=== PATIENT | female | born 1975 | race African-American/Black ===

== ENCOUNTER 2016-06-05 18:37 | Emergency (ER) | payer MEDICAID ==
[~2016-06-05] VITALS: Ht 165.1 cm; Wt 60.0 kg
[~2016-06-05 18:37] MED LIST: ALBU0.086 NEB; ALBU1AER INH; PRED50TA PO
[2016-06-05 18:40] VITALS: BP 145/74; PULSE 110; RESP 12; TEMP 97.7; O2SAT 100
--- NOTE | 2016-06-05 20:31 | PD ---
HPI Chief Complaint: Pain: Acute or Chronic Time Seen by Provider: 20:28 Travel History International Travel<30 days: No Contact w/Intl Traveler<30days: No History of Present Illness HPI This is a 40-year-old female who presents to the emergency department for evaluation of left shoulder pain. She states she had rotator cuff surgery done today. She was given prescriptions for Percocet and Valium. She states she took these prescriptions to [facility], but states they told her she would have to take them to a different pharmacy. However, she came to the emergency department instead. Patient has prescriptions in her hands. Patient is angry during my exam stating "your staff is crazy". Patient apparently called 911 twice from the emergency waiting room. When I instructed the patient that I would help her today, but I would be unable to write her new prescriptions she needed to get these ones filled, she pulled out her cell phone and instructed me that she was going to record my conversation. When I instructed her that I did not want to be recorded, she stated that she wanted to see a physician. The patient was seen in triage, but she will be transferred to a medical pod when a bed becomes available. PFSH Past Medical History Asthma: Yes Blood Disorders: No Bipolar Disorder: Yes Cancer: No Cardiovascular Problems: Yes (HEART MURMUR) Diminished Hearing: No Endocrine: No Gastrointestinal Disorders: Yes (stomach cramps) Genitourinary: No Headaches: No Immune Disorder: No Musculoskeletal: No Neurologic: Yes Psychiatric: Yes Reproductive: No Respiratory: Yes (ASTHMA/BRONCHITIS) Immunizations Current: No PNEUMOCCOCAL Vaccine (Year): 2 ?: Not LMP: 05/27/16 : 4 Para: 3 Miscarriage: 1 : 0 Tubal Ligation: Yes (1999) Past Surgical History Section: No Gynecologic Surgery: Yes (CERCLAGE ) Other Surgery: Yes (tubal ligation) Social History Alcohol Use: No Tobacco Use: Yes (1 PK) Substance Use: No Allergies-Medications (Allergen,Severity, Reaction): Coded Allergies: No Known Allergies (Unverified , 06/05/16) Reported Meds & Prescriptions Reported Meds & Active Scripts Active Reported Zithromax (Azithromycin) 250 Mg Tab 250 Mg PO DIRECTED Take 2 tabs (500 mg) on day 1 then 1 tab daily x 4 days. Review of Systems Except as stated in HPI: all other systems reviewed are Neg Physical Exam Exam Limitations: Uncooperative Narrative Physical exam is limited as I was not able to complete it before the patient stated she did not want to see me and wanted to see a doctor. GENERAL: Well-developed well-nourished female patient, afebrile. SKIN: Warm and dry. HEAD: Normocephalic. Atraumatic. EYES: No scleral icterus. No injection or drainage. NECK: Supple, trachea midline. No JVD or lymphadenopathy. RESPIRATORY: No accessory muscle use. MUSCULOSKELETAL: No cyanosis, or edema. Patient is wearing a sling and swath to the left arm. Data Data Last Documented VS Vital Signs Date Time Temp Pulse Resp B/P Pulse Ox O2 Delivery O2 Flow Rate FiO2 06/05/16 22:36 98.3 71 16 121/63 98 06/05/16 18:40 Room Air Orders Electrocardiogram (06/05/16 ) Morphine Inj (Morphine Inj) (06/05/16 21:30) MDM Medical Decision Making Medical Screen Exam Complete: Yes Emergency Medical Condition: Yes Medical Record Reviewed: Yes Differential Diagnosis Acute pain from rotator cuff surgery versus anxiety versus other Narrative Course 40-year-old female presents to the emergency department stating she was unable to get her Percocet and Valium filled that were given to her earlier by her physician after having rotator cuff surgery. She was instructed by Jordana to take these to another pharmacy, but came to the emergency department instead. When I was talking to the patient, she became angry and threatened to record my conversation. She did request that she see a physician. My exam is limited due to this. Patient was originally seen in triage. She'll be transferred to medical pod for further evaluation and disposition when a bed becomes available. Cris Rivera Jun 05, 2016 20:31
[2016-06-05] MEDS ORDERED: ZITH250T PO (21:18)
[2016-06-05] MEDS ORDERED: MORPHINE SULFATE 4 MG/ML INJ IM ONE (21:30)
--- NOTE | 2016-06-05 21:46 | PD ---
HPI Chief Complaint: Pain: Acute or Chronic Time Seen by Provider: 21:09 Travel History International Travel<30 days: No Contact w/Intl Traveler<30days: No History of Present Illness HPI 40yo F with no significant PMH presents to the ED requesting pain medication for her left shoulder. Pt had arthroscopic left shoulder surgery today and was prescribed valium and percocet. Pt still physically have the prescriptions and states she was unable to have them filled. Denies any fever, chest pain, sob, n /v, abdominal pain, focal weakness or numbness. PFSH Past Medical History Asthma: Yes Blood Disorders: No Bipolar Disorder: Yes Cancer: No Cardiovascular Problems: Yes (HEART MURMUR) Diminished Hearing: No Endocrine: No Gastrointestinal Disorders: Yes (stomach cramps) Genitourinary: No Headaches: No Immune Disorder: No Musculoskeletal: No Neurologic: Yes Psychiatric: Yes Reproductive: No Respiratory: Yes (ASTHMA/BRONCHITIS) Immunizations Current: No PNEUMOCCOCAL Vaccine (Year): 2 ?: Not LMP: 05/27/16 : 4 Para: 3 Miscarriage: 1 : 0 Tubal Ligation: Yes (1999) Past Surgical History Section: No Gynecologic Surgery: Yes (CERCLAGE ) Other Surgery: Yes (tubal ligation) Social History Alcohol Use: No Tobacco Use: Yes (1 PK) Substance Use: No Allergies-Medications (Allergen,Severity, Reaction): Coded Allergies: No Known Allergies (Unverified , 06/05/16) Reported Meds & Prescriptions Reported Meds & Active Scripts Active Reported Zithromax (Azithromycin) 250 Mg Tab 250 Mg PO DIRECTED Take 2 tabs (500 mg) on day 1 then 1 tab daily x 4 days. Review of Systems Except as stated in HPI: all other systems reviewed are Neg Physical Exam Narrative GENERAL: 40yoF very anxious, crying. SKIN: Warm and dry. HEAD: Atraumatic. Normocephalic. NECK: Trachea midline. No JVD. CARDIOVASCULAR: Regular rate and rhythm. No murmur appreciated. RESPIRATORY: No accessory muscle use. Clear to auscultation. Breath sounds equal bilaterally. GASTROINTESTINAL: Abdomen soft, non-tender, nondistended. Hepatic and splenic margins not palpable. MUSCULOSKELETAL: LUE: Left shoulder dressing clean/dry/intact. [place] intact, with no erythema or signs of infection. Deltoid sensation intact. Radial pulse 2+. In arm sling. NEUROLOGICAL: Awake and alert. No obvious cranial nerve deficits. Motor grossly within normal limits. Normal speech. PSYCHIATRIC: Appropriate mood and affect; insight and judgment normal. Data Data Last Documented VS Vital Signs Date Time Temp Pulse Resp B/P Pulse Ox O2 Delivery O2 Flow Rate FiO2 06/05/16 18:40 97.7 110 12 145/74 100 Room Air Orders Electrocardiogram (06/05/16 ) Morphine Inj (Morphine Inj) (06/05/16 21:30) MDM Medical Decision Making Medical Screen Exam Complete: Yes Emergency Medical Condition: Yes Differential Diagnosis Post op pain vs. malingering Narrative Course 40yo F here requesting pain medication for her shoulder even though pt had a nerve block for the surgery and had prescriptions of valium and percocet with her. Pt is very dramatic and I believe her tachycardia is related to her pain and anxiety. Pt given 4mg morphine IM with improvement of pain. Pt will not be prescribed any pain medication since she has prescriptions and needs to follow up with her orthopedic surgeon as an outpatient. Pt is nontoxic appearing, has no fever. Diagnosis Primary Impression: Acute pain of left shoulder Patient Instructions: General Instructions Departure Forms: Tests/Procedures Additional Instructions: Please follow up with your orthopedic surgeon tomorrow. Med/Other Pt SpecificInfo: No Change to Meds Disposition: 01 DISCHARGE HOME Condition: Stable JosetteImani DO Jun 05, 2016 21:46
[2016-06-05 22:08] VITALS: RESP 14
[2016-06-05 22:36] VITALS: BP 121/63; TEMP 98.3
--- NOTE | 2016-06-06 08:17 | EKG ---
Date Performed: 06/05/2016 Time Performed: 20:53:16 PTAGE: 40 years EKG: SINUS TACHYCARDIA WITH SHORT WA INTERVAL NONSPECIFIC ST & T-WAVE ABNORMALITY ABNORMAL RHYTH M ECG COMPARED TO PRIOR ELECTROCARDIOGRAM, Rate has increased and T wave changes are more prominent. PREVIOUS TRACING : 11/13/2010 17.05 DOCTOR: Jair Mayers Interpretating Date/Time 06/06/2016 08:15:55
== END 2016-06-05 22:38 | disposition home or self-care (01) ==
LOC: NEPB 18:37
DX: M25.512 Pain in left shoulder (principal); F31.9 Bipolar disorder, unspecified; R01.1 Cardiac murmur, unspecified; F17.210 Nicotine dependence, cigarettes, uncomplicated; R94.31 Abnormal electrocardiogram [ECG] [EKG]
CPT/HCPCS: 93005; 96372; 99283; J2270

== ENCOUNTER 2017-01-21 00:31 | Emergency (ER) | payer MEDICAID, OTHER ==
[~2017-01-21] VITALS: Ht 165.1 cm; Wt 57.2 kg
[~2017-01-21 00:31] MED LIST changes: -ALBU0.086 NEB; -ALBU1AER INH; -PRED50TA PO; +ZITH250T PO
[2017-01-21 00:42] VITALS: BP 132/66; PULSE 79; RESP 16; TEMP 99.4; O2SAT 100
[2017-01-21 00:56] LABS: BLOOD, URINE LARGE (NEG); GLUCOSE,URINE NEG (NEG); KETONE, URINE TRACE mg/dL (NEG); NITRITE,URINE NEG (NEG)
[2017-01-21 01:00] LABS: URINE COLOR YELLOW (YELLW/STRAW)
[2017-01-21 01:01] LABS: MUCUS URINE OCC /lpf (OCC)
[2017-01-21 01:02] LABS: RBC, URINE 100-200 /hpf (0-3)
[2017-01-21 01:04] LABS: COMMENT (UR) CULT NOT INDICATED; CULTURE IF INDICATED CULT NOT INDICATED; SQUAMOUS EPITHELIAL CELL URINE > 8 /hpf (0-5)
[2017-01-21 01:17] VITALS: BP_SYST 132; BP_SYST 138; BP_DIAS 66; BP_DIAS 79; PULSE 79; RESP 18; TEMP 99.4; O2SAT 99
[2017-01-21] MEDS ORDERED: SODIUM CHLOR 0.9% 1000 ML INJ 1,000 ML IV SCH ×2 (01:20→01:30)
--- NOTE | 2017-01-21 01:26 | PD ---
HPI Chief Complaint: Complaint Time Seen by Provider: 01:19 Travel History International Travel<30 days: No Contact w/Intl Traveler<30days: No Traveled to known affect area: No History of Present Illness HPI The patient is a 41-year-old female that complains of bilateral flank pain and vomiting since yesterday evening. She never was able to take her temperature at home but has had chills. She states she cannot be , she has had a tubal ligation. Apparently, the patient had a workup for the same thing at [facility] yesterday. PFSH Past Medical History Asthma: Yes Blood Disorders: No Bipolar Disorder: Yes Cancer: No Cardiovascular Problems: Yes (HEART MURMUR) Diminished Hearing: No Endocrine: No Gastrointestinal Disorders: Yes (stomach cramps) Genitourinary: No Headaches: No Immune Disorder: No Musculoskeletal: No Neurologic: Yes Psychiatric: Yes Reproductive: No Respiratory: Yes (ASTHMA/BRONCHITIS) Immunizations Current: No PNEUMOCCOCAL Vaccine (Year): 2 : 4 Para: 3 Miscarriage: 1 : 0 Tubal Ligation: Yes (1999) Past Surgical History Section: No Gynecologic Surgery: Yes (CERCLAGE ) Other Surgery: Yes (tubal ligation) Social History Alcohol Use: No Tobacco Use: Yes (1 PK) Substance Use: No Allergies-Medications (Allergen,Severity, Reaction): Coded Allergies: No Known Allergies (Unverified , 06/05/16) Reported Meds & Prescriptions Reported Meds & Active Scripts Active Bactrim DS (Sulfamethoxazole-Trimethoprim) 800-160 Mg Tab 1 Tab PO BID Doxycycline Hyclate 100 Mg Cap 100 Mg PO BID Flagyl (Metronidazole) 500 Mg Tab 500 Mg PO TID 10 Days Reported Zithromax (Azithromycin) 250 Mg Tab 250 Mg PO DIRECTED Take 2 tabs (500 mg) on day 1 then 1 tab daily x 4 days. Review of Systems Except as stated in HPI: all other systems reviewed are Neg Physical Exam Narrative GENERAL: The patient appears moderately dehydrated, alert, oriented 3 in moderate distress with her nausea and flank pain. Her vital signs show temperature 99.4 but otherwise normal. SKIN: Focused skin assessment warm/dry. HEAD: Atraumatic. Normocephalic. EYES: Pupils equal and round. No scleral icterus. No injection or drainage. ENT: No nasal bleeding or discharge. Mucous membranes pink and moist. NECK: Trachea midline. No JVD. CARDIOVASCULAR: Regular rate and rhythm. No murmur appreciated. RESPIRATORY: No accessory muscle use. Clear to auscultation. Breath sounds equal bilaterally. GASTROINTESTINAL: Abdomen soft, with tenderness to direct palpation in the suprapubic area and both flanks and the abdomen is nondistended. Hepatic and splenic margins not palpable. No guarding or rebound is present. MUSCULOSKELETAL: No obvious deformities. No clubbing. No cyanosis. No edema. NEUROLOGICAL: Awake and alert. No obvious cranial nerve deficits. Motor grossly within normal limits. Normal speech. PSYCHIATRIC: Appropriate mood and affect; insight and judgment normal. GENITOURINARY: Normal external genitalia without lesions or erythema. Vaginal vault without blood but there is appear white, slightly foul-smelling drainage. Cervical os was closed with clear drainage. There is exquisite cervical motion tenderness. Uterus tender and nonenlarged. Bilateral adnexa tender without masses. Data Data Last Documented VS Vital Signs Date Time Temp Pulse Resp B/P (MAP) Pulse Ox O2 Delivery O2 Flow Rate FiO2 01/21/17 03:18 16 01/21/17 02:30 78 120/77 (91) 100 Room Air 01/21/17 01:17 99.4 Orders Orders Urinalysis - C+S If Indicated (01/21/17 00:48) Ed Urine Pregnancytest Poc (01/21/17 00:48) Beta Hcg (Quant/Titer) (01/21/17 01:20) Complete Blood Count With Diff (01/21/17 01:20) Comprehensive Metabolic Panel (01/21/17 01:20) Iv Access Insert/Monitor (01/21/17 01:20) Ecg Monitoring (01/21/17 01:20) Oximetry (01/21/17 01:20) Ondansetron Inj (Zofran Inj) (01/21/17 01:30) Sodium Chlor 0.9% 1000 Ml Inj (Ns 1000 M (01/21/17 01:20) Sodium Chloride 0.9% Flush (Ns Flush) (01/21/17 01:30) Lactic Acid (01/21/17 01:20) Sodium Chlor 0.9% 1000 Ml Inj (Ns 1000 M (01/21/17 01:30) Hydromorphone Pf Inj (Dilaudid Pf Inj) (01/21/17 02:30) Ondansetron Inj (Zofran Inj) (01/21/17 02:30) Ct Abd/Pel W/O Iv Contrast (01/21/17 02:30) Doxycycline (Vibratab) (01/21/17 03:15) Ceftriaxone Inj (Rocephin Inj) (01/21/17 03:15) Gc And Chlamydia Pcr (01/21/17 03:17) Wet Prep Profile (01/21/17 03:17) Sulfamet-Trimeth Ds 800-160 Mg (Bactrim (01/21/17 03:45) Labs Laboratory Tests Test 01/21/17 00:52 01/21/17 01:50 01/21/17 03:17 01/21/17 03:20 Urine Color YELLOW Urine Turbidity SLIGHT Urine pH 7.0 Urine Specific [place] 1.014 Urine Protein NEG mg/dL Urine Glucose (UA) NEG mg/dL Urine Ketones TRACE mg/dL Urine Occult Blood LARGE Urine Nitrite NEG Urine Bilirubin NEG Urine Leukocyte Esterase TRACE Urine RBC 100-200 /hpf Urine WBC 3-5 /hpf Urine Squamous Epithelial Cells > 8 /hpf Urine Mucus OCC /lpf Microscopic Urinalysis Comment CULT NOT INDICATED White Blood Count 15.4 TH/MM3 Red Blood Count 4.24 MIL/MM3 Hemoglobin 13.1 GM/DL Hematocrit 38.9 % Mean Corpuscular Volume 91.9 FL Mean Corpuscular Hemoglobin 31.0 PG Mean Corpuscular Hemoglobin Concent 33.7 % Red Cell Distribution Width 12.4 % Platelet Count 190 TH/MM3 Mean Platelet Volume 9.5 FL Neutrophils (%) (Auto) 87.6 % Lymphocytes (%) (Auto) 7.0 % Monocytes (%) (Auto) 4.7 % Eosinophils (%) (Auto) 0.0 % Basophils (%) (Auto) 0.7 % Neutrophils # (Auto) 13.5 TH/MM3 Lymphocytes # (Auto) 1.1 TH/MM3 Monocytes # (Auto) 0.7 TH/MM3 Eosinophils # (Auto) 0.0 TH/MM3 Basophils # (Auto) 0.1 TH/MM3 CBC Comment DIFF FINAL Differential Comment Blood Urea Nitrogen 7 MG/DL Creatinine 0.70 MG/DL Random Glucose 121 MG/DL Total Protein 8.4 GM/DL Albumin 4.1 GM/DL Calcium Level 9.5 MG/DL Alkaline Phosphatase 70 U/L Aspartate Amino Transf (AST/SGOT) 17 U/L Alanine Aminotransferase (ALT/SGPT) 18 U/L Total Bilirubin 0.8 MG/DL Sodium Level 133 MEQ/L Potassium Level 4.1 MEQ/L Chloride Level 100 MEQ/L Carbon Dioxide Level 22.6 MEQ/L Anion Gap 10 MEQ/L Estimat Glomerular Filtration Rate 112 ML/MIN Human Chorionic Gonadotropin, Quant LESS THAN 1 MIU/ML Lactic Acid Level 1.1 mmol/L Clue Cells (Wet Prep) PRESENT Vaginal Trichomonas (Wet Prep) NONE SEEN Vaginal Yeast (Wet Prep) NONE SEEN MDM Medical Decision Making Medical Screen Exam Complete: Yes Emergency Medical Condition: Yes Medical Record Reviewed: Yes Interpretation(s) The urine shows slight turbidity, trace ketones, large occult blood, trace leukocyte esterase with 100-200 red cells and 3-5 white cells. Differential Diagnosis Urinary stone, urinary tract infection, colitis, abdominal pain etiology undetermined, electrolyte disorder Narrative Course I asked the patient several times if she got a CT scan at [facility] of the abdomen/pelvis. She said no. Apparently, this is incorrect she got a CT scan of the abdomen/pelvis at [facility]. Apparently, it was normal. Her workup was normal at [facility]. Diagnosis Primary Impression: PID (acute pelvic inflammatory disease) Additional Impression: Hematuria of undiagnosed cause Additional Instructions: [facility]. The antibiotic is one tablet twice daily for 10 days. You do have blood in your urine tonight and this will need to be worked up. Scripts Doxycycline Hyclate (Doxycycline Hyclate) 100 Mg Cap 100 MG PO BID for Infection, #20 CAP 0 Refills Prov: David Vyas MD 01/21/17 Metronidazole (Flagyl) 500 Mg Tab 500 MG PO TID for Infection for 10 Days, TAB 0 Refills Prov: aDvid Vyas MD 01/21/17 Disposition: 01 DISCHARGE HOME Condition: Stable David Vyas MD Jan 21, 2017 01:26
[2017-01-21] MEDS ORDERED: ONDANSETRON HCL 4 MG/2 ML VIAL IVP ONE (01:30)
[2017-01-21] MEDS ORDERED: SODIUM CHLORIDE 0.9% FLUSH 10 ML FLUSH IV FLUSH PRN (01:30)
[2017-01-21 02:12] LABS: CHLORIDE 100 MEQ/L (98-107); POTASSIUM 4.1 MEQ/L (3.5-5.1); SODIUM (NA) 133 MEQ/L (136-145)
[2017-01-21 02:16] LABS: ANION GAP 10 MEQ/L (5-15); BICARBONATE 22.6 MEQ/L (21.0-32.0); BLOOD UREA NITROGEN 7 MG/DL (7-18)
[2017-01-21 02:18] LABS: AUTOMATED NEUTROPHIL # 13.5 TH/MM3 (1.8-7.7); BASOPHIL # 0.1 TH/MM3 (0-0.2); BASOPHIL % 0.7 % (0.0-2.0); HEMATOCRIT 38.9 % (35.0-46.0); LYMPHOCYTE # 1.1 TH/MM3 (1.0-4.8); MEAN CELL VOLUME 91.9 FL (80.0-100.0); MEAN CORPUSCULAR HGB CONC 33.7 % (32.0-36.0); MONO % 4.7 % (0.0-8.0); NEUT % 87.6 % (16.0-70.0); PLATELET COUNT 190 TH/MM3 (150-450); RED BLOOD COUNT 4.24 MIL/MM3 (4.00-5.30); RED CELL DISTRIBUTION WIDTH 12.4 % (11.6-17.2); WHITE BLOOD COUNT 15.4 TH/MM3 (4.0-11.0)
[2017-01-21 02:19] LABS: ALT (GPT) 18 U/L (10-53); AST (GOT) 17 U/L (15-37); GLOMERULAR FILTRATION RATE 112 ML/MIN (>89)
[2017-01-21 02:21] LABS: TOTAL BILIRUBIN ADULT 0.8 MG/DL (0.2-1.0)
[2017-01-21 02:22] LABS: ALKALINE PHOSPHATASE 70 U/L (45-117)
[2017-01-21 02:24] LABS: BETA HCG QUANT LESS THAN 1 MIU/ML (0-5)
[2017-01-21 02:30] VITALS: BP 120/77; PULSE 78; RESP 16; O2SAT 100
[2017-01-21] MEDS ORDERED: HYDROmorphone HCL PF 1 MG/ML VIAL IVP ONE (02:30)
[2017-01-21] MEDS ORDERED: ONDANSETRON HCL 4 MG/2 ML VIAL IV ONE (02:30)
[2017-01-21 02:31] LABS: HEMO FLAGS DIFF FINAL
[2017-01-21] MEDS ORDERED: DOXYCYCLINE HYCLATE 100 MG TAB PO ONE (03:15)
[2017-01-21] MEDS ORDERED: cefTRIAXone INJ 1,000 MG in SODIUM CHLORIDE 0.9% INJ 100 ML IV ONE (03:15)
[2017-01-21 03:18] VITALS: RESP 16
[2017-01-21] MEDS ORDERED: METR-1 PO (03:38)
[2017-01-21] MEDS ORDERED: DOXY100C PO (03:39)
[2017-01-21] MEDS ORDERED: BACT800T5 PO (03:43)
[2017-01-21] MEDS ORDERED: SULFAMETHOXAZOLE-TRIMETHOPRIM DS 800-160 MG TAB PO ONE (03:45)
[2017-01-21] MEDS ORDERED: metroNIDAZOLE 500 MG TAB PO ONE (04:00)
[2017-01-21 04:52] VITALS: BP 142/84
[2017-01-21 11:52] LABS: CHLAMYDIA PCR NOT DETECTED (NOT DETECT); NEISSERIA PCR NOT DETECTED (NOT DETECT)
[2017-02-10] MEDS ORDERED: METR-1 PO (15:59)
== END 2017-01-21 05:01 | disposition home or self-care (01) ==
LOC: PHED 00:31
DX: N73.0 Acute parametritis and pelvic cellulitis (principal); R31.9 Hematuria, unspecified; R11.10 Vomiting, unspecified; R68.83 Chills (without fever); F17.200 Nicotine dependence, unspecified, uncomplicated; Z87.09 Personal history of other diseases of the respiratory system; Z86.59 Personal history of other mental and behavioral disorders; Z86.79 Personal history of other diseases of the circulatory system; Z87.19 Personal history of other diseases of the digestive system; Z86.69 Personal history of other diseases of the nervous system and sense organs
CPT/HCPCS: 80053; 81001; 83605; 84702; 84703; 85025; 87210; 87491; 87591; 96361; 96365; 96375; J0696; J1170; J2405; J7030

== ENCOUNTER 2017-01-22 12:42 | Inpatient (IN) | payer OTHER ==
[~2017-01-22] VITALS: Ht 172.7 cm; Wt 55.7 kg
[~2017-01-22 12:42] MED LIST changes: +DOXY100C PO; +ESMOLOL HCL 100 MG/10 ML VIAL IV ONE; +GLYCOPYRROLATE 1 MG/5 ML SYRINGE IV PUSH ONE; +LACTATED RINGER'S 1000 ML INJ 2,000 ML IV ONE; +LIDOCAINE HCL 1% PF 5 ML AMPULE OTHER ONE; +METR-1 PO; +MIDAZOLAM HCL 2 MG/2 ML VIAL IV ONE; +NEOSTIGMINE 3 MG/3 ML SYR IV ONE; +ONDANSETRON HCL 4 MG/2 ML VIAL IV PUSH ONE; +PROPOFOL 200 MG/20 ML AMP IV ONE; +ROCURONIUM INJ 50 MG/5 ML SYRINGE IV PUSH ONE
[2017-01-22] MEDS ORDERED: IOHEXOL 350 MG/ML 10 ML VIAL (for RAD DIAG) IVCONTRAST ONE (12:43)
[2017-01-22 12:52] VITALS: BP 129/74; PULSE 106; RESP 15; TEMP 98.2; O2SAT 100; O2SAT 99
[2017-01-22] MEDS ORDERED: SODIUM CHLOR 0.9% 1000 ML INJ 1,000 ML IV SCH (13:10)
[2017-01-22] MEDS ORDERED: SODIUM CHLORIDE 0.9% FLUSH 10 ML FLUSH IV FLUSH PRN (13:15)
[2017-01-22] MEDS ORDERED: FAMOTIDINE 20 MG/2 ML VIAL IV PUSH ONE (13:15)
[2017-01-22] MEDS ORDERED: ONDANSETRON HCL 4 MG/2 ML VIAL IVP ONE (13:15)
[2017-01-22] MEDS ORDERED: MORPHINE SULFATE 4 MG/ML INJ IV PUSH ONE (13:15)
--- NOTE | 2017-01-22 13:36 | PD ---
HPI Chief Complaint: Abdominal Pain Time Seen by Provider: 13:00 Travel History International Travel<30 days: No Contact w/Intl Traveler<30days: No Traveled to known affect area: No History of Present Illness HPI 41-year-old Afro-Turkish female presents the emergency department with ongoing worsening abdominal pain, nausea, vomiting, and distention. Patient has been seen twice in the last week for similar complaints. Patient was seen at [facility] on Friday, and reportedly had a CT scan showing no obvious findings and was discharged. She was then seen again Friday morning at [place] and diagnosed with PID treated with doxycycline and Flagyl by mouth. Patient states since that time she's felt constipated and having increased distention in the abdomen as well as lower abdominal pain diffusely. Patient denies vaginal discharge or urinary symptoms. Pain is currently crampy and intermittent and described as an 8 out of 10. She is very nauseous. Pain is worse with any type of movement. Patient has no previous history of colitis or Crohn's disease. Patient was brought in by EMS. She has no known drug allergies. PFSH Past Medical History Asthma: Yes Blood Disorders: No Bipolar Disorder: Yes Cancer: No Cardiovascular Problems: Yes (HEART MURMUR) Diminished Hearing: No Endocrine: No Gastrointestinal Disorders: Yes (stomach cramps) Genitourinary: No Headaches: No Immune Disorder: No Musculoskeletal: No Neurologic: Yes Psychiatric: Yes Reproductive: No Respiratory: Yes (ASTHMA/BRONCHITIS) Immunizations Current: No PNEUMOCCOCAL Vaccine (Year): 2 ?: Not : 4 Para: 3 Miscarriage: 1 : 0 Tubal Ligation: Yes Past Surgical History Section: No Gynecologic Surgery: Yes (CERCLAGE ) Other Surgery: Yes (tubal ligation) Social History Alcohol Use: No Tobacco Use: Yes (5 cigarettes/daily) Substance Use: No Allergies-Medications (Allergen,Severity, Reaction): Coded Allergies: No Known Allergies (Unverified , 06/05/16) Reported Meds & Prescriptions Reported Meds & Active Scripts Active Doxycycline Hyclate 100 Mg Cap 100 Mg PO BID Flagyl (Metronidazole) 500 Mg Tab 500 Mg PO TID 10 Days Reported Zithromax (Azithromycin) 250 Mg Tab 250 Mg PO DIRECTED Take 2 tabs (500 mg) on day 1 then 1 tab daily x 4 days. Review of Systems Except as stated in HPI: all other systems reviewed are Neg General / Constitutional: Positive: Chills, Weight Loss, No: Fever Eyes: No: Visual changes HENT: Positive: Lightheadedness, No: Headaches, Vertigo, Sore Throat, Rhinitis , Rhinorrhea, Congestion, Nosebleed, Neck Stiffness, Neck Pain, Gingival Bleeding, Dental Difficulties, Ear Discharge, Earache Cardiovascular: No: Chest Pain or Discomfort Respiratory: No: Cough, Shortness of Breath Gastrointestinal: Positive: Nausea, Vomiting, Abdominal Pain, Constipation, Changes in Bowel Habits, Loss of Appetite, No: Diarrhea, Indigestion, Dysphagia Genitourinary: No: Urgency, Frequency, Dysuria Musculoskeletal: No: Pain Skin: No Rash Neurologic: No: Weakness Psychiatric: No: Depression Endocrine: No: Polydipsia Hematologic/Lymphatic: No: Easy Bruising Physical Exam Narrative GENERAL: Patient appears in moderate distress. SKIN: Warm and dry. Normal color. Normal turgor. No diaphoresis. HEAD: Atraumatic. Normocephalic. EYES: Pupils equal and round. No scleral icterus. No injection or drainage. ENT: No nasal bleeding or discharge. Mucous membranes pink and moist. Pharynx is clear. Airway is patent. NECK: Trachea midline. Supple nontender. CARDIOVASCULAR: Regular rate and rhythm. RESPIRATORY: No accessory muscle use. Clear to auscultation. Breath sounds equal bilaterally. GASTROINTESTINAL: Abdomen soft, moderate diffuse tenderness throughout, mildly distended. Hepatic and splenic margins not palpable. Bowel sounds are present but quiet in all quadrants. MUSCULOSKELETAL: Extremities without clubbing, cyanosis, or edema. No obvious deformities. NEUROLOGICAL: Awake and alert. No obvious cranial nerve deficits. Motor grossly within normal limits. Five out of 5 muscle strength in the arms and legs. Normal speech. PSYCHIATRIC: Appropriate mood and affect; insight and judgment normal. Data Data Last Documented VS Vital Signs Date Time Temp Pulse Resp B/P (MAP) Pulse Ox O2 Delivery O2 Flow Rate FiO2 01/22/17 12:54 17 01/22/17 12:52 98.2 106 129/74 (92) 100 01/22/17 12:52 Room Air Orders Orders Complete Blood Count With Diff (01/22/17 13:10) Comprehensive Metabolic Panel (01/22/17 13:10) Lipase (01/22/17 13:10) Lactic Acid (01/22/17 13:10) Prothrombin Time / Inr (Pt) (01/22/17 13:10) Act Partial Throm Time (Ptt) (01/22/17 13:10) Urinalysis - C+S If Indicated (01/22/17 13:10) Ct Abd/Pel W Iv Contrast(Rout) (01/22/17 13:10) Iv Access Insert/Monitor (01/22/17 13:10) Ecg Monitoring (01/22/17 13:10) Oximetry (01/22/17 13:10) NPO (01/22/17 13:10) Morphine Inj (Morphine Inj) (01/22/17 13:15) Ondansetron Inj (Zofran Inj) (01/22/17 13:15) Sodium Chlor 0.9% 1000 Ml Inj (Ns 1000 M (01/22/17 13:10) Sodium Chloride 0.9% Flush (Ns Flush) (01/22/17 13:15) Electrocardiogram (01/22/17 13:10) Famotidine Inj (Pepcid Inj) (01/22/17 13:15) Iohexol 350 Inj (Omnipaque 350 Inj) (01/22/17 12:43) Vancomycin Inj (Vancomycin Inj) (01/22/17 17:00) Hydromorphone Pf Inj (Dilaudid Pf Inj) (01/22/17 17:30) Comprehensive Metabolic Panel (01/23/17 06:00) Free Thyroxine (T4) (01/23/17 06:00) Hemoglobin (Hgb) A1c (01/23/17 06:00) Magnesium (Mg) (01/23/17 06:00) Phosphorus (Po4) (01/23/17 06:00) Thyroid Stimulating Hormone (01/23/17 06:00) Complete Blood Count With Diff (01/23/17 06:00) Admit To Inpatient (01/22/17 ) Code Status (01/22/17 17:34) Vital Signs (Adult) Q4H (01/22/17 17:34) Activity Oob Ad Aleah (01/22/17 17:34) Relocation Commissioner / Telemetry .CONTINUOUS (01/22/17 17:34) Intake + Output VICKY.QSHIFT (01/22/17 17:34) Diet Npo (01/22/17 Dinner) D5-1/2 Ns + Kcl 20 Meq Inj (D5-1/2 Ns + (01/22/17 17:34) Sodium Chloride 0.9% Flush (Ns Flush) (01/22/17 17:45) Sodium Chloride 0.9% Flush (Ns Flush) (01/22/17 21:00) Acetaminophen (Tylenol) (01/22/17 17:45) Ondansetron Inj (Zofran Inj) (01/22/17 17:45) Prochlorperazine Supp (Compazine Supp) (01/22/17 17:45) Blood Culture (01/22/17 17:34) Resp Oxygen Eduardo C Titrat 1-4 L (01/22/17 ) Case Management Consult (01/22/17 17:34) Zolpidem (Ambien) (01/22/17 17:45) Scd Bilateral/Knee High VICKY.BID (01/22/17 17:34) Man Bilateral/Knee High VICKY.QSHIFT (01/22/17 17:45) Acetaminophen (Tylenol) (01/22/17 17:45) Oxycodone-Acetamin 5-325 Mg (Percocet (01/22/17 17:45) Oxycodone-Acetamin 10-325 Mg (Percocet 1 (01/22/17 17:45) Hydromorphone Pf Inj (Dilaudid Pf Inj) (01/22/17 17:45) Hydromorphone Pf Inj (Dilaudid Pf Inj) (01/22/17 17:45) Hydromorphone Pf Inj (Dilaudid Pf Inj) (01/22/17 17:45) Naloxone Inj (Narcan Inj) (01/22/17 17:45) Docusate Sodium-Senna (Reina-Colace) (01/22/17 21:00) Magnesium Hydroxide Liq (Milk Of Magnesi (01/22/17 17:45) Sennosides (Senokot) (01/22/17 17:45) Bisacodyl Supp (Dulcolax Supp) (01/22/17 17:45) Lactulose Liq (Lactulose Liq) (01/22/17 17:45) Vancomycin Consult Pharmacy (Vancomycin (01/22/17 17:45) Piperacil-Tazo 4.5 Gm Premix (Zosyn 4.5 (01/22/17 20:00) Inpatient Certification (01/22/17 ) Metronidazole 500 Mg Inj (Flagyl 500 Mg (01/22/17 18:00) Admit Order (Ed Use Only) (01/22/17 17:38) Consult Gynecology (01/22/17 ) Us Pelvis Comp W Dop Transvag (01/22/17 17:00) Labs Laboratory Tests Test 01/22/17 13:30 01/22/17 14:30 White Blood Count 20.4 TH/MM3 Red Blood Count 4.25 MIL/MM3 Hemoglobin 13.2 GM/DL Hematocrit 38.8 % Mean Corpuscular Volume 91.3 FL Mean Corpuscular Hemoglobin 31.1 PG Mean Corpuscular Hemoglobin Concent 34.1 % Red Cell Distribution Width 13.0 % Platelet Count 217 TH/MM3 Mean Platelet Volume 9.1 FL Neutrophils (%) (Auto) 85.6 % Lymphocytes (%) (Auto) 6.5 % Monocytes (%) (Auto) 7.8 % Eosinophils (%) (Auto) 0.0 % Basophils (%) (Auto) 0.1 % Neutrophils # (Auto) 17.5 TH/MM3 Lymphocytes # (Auto) 1.3 TH/MM3 Monocytes # (Auto) 1.6 TH/MM3 Eosinophils # (Auto) 0.0 TH/MM3 Basophils # (Auto) 0.0 TH/MM3 CBC Comment DIFF FINAL Differential Comment Prothrombin Time 12.3 SEC Prothromb Time International Ratio 1.1 RATIO Activated Partial Thromboplast Time 27.4 SEC Blood Urea Nitrogen 8 MG/DL Creatinine 0.74 MG/DL Random Glucose 116 MG/DL Total Protein 7.8 GM/DL Albumin 3.5 GM/DL Calcium Level 9.2 MG/DL Alkaline Phosphatase 73 U/L Aspartate Amino Transf (AST/SGOT) 12 U/L Alanine Aminotransferase (ALT/SGPT) 9 U/L Total Bilirubin 1.2 MG/DL Sodium Level 134 MEQ/L Potassium Level 3.6 MEQ/L Chloride Level 102 MEQ/L Carbon Dioxide Level 23.3 MEQ/L Anion Gap 9 MEQ/L Estimat Glomerular Filtration Rate 105 ML/MIN Lactic Acid Level 1.3 mmol/L Lipase 79 U/L Urine Color LIGHT-YELLOW Urine Turbidity CLEAR Urine pH 6.5 Urine Specific [place] 1.004 Urine Protein NEG mg/dL Urine Glucose (UA) NEG mg/dL Urine Ketones NEG mg/dL Urine Occult Blood MOD Urine Nitrite NEG Urine Bilirubin NEG Urine Urobilinogen LESS THAN 2.0 MG/DL Urine Leukocyte Esterase NEG Urine RBC 13 /hpf Urine WBC 1 /hpf Urine Squamous Epithelial Cells 2 /hpf Urine Bacteria RARE /hpf Microscopic Urinalysis Comment CULT NOT INDICATED MDM Medical Decision Making Medical Screen Exam Complete: Yes Emergency Medical Condition: Yes Medical Record Reviewed: Yes Differential Diagnosis Abdominal pain. Nausea vomiting. History of PID. Appendicitis. Colitis. Diverticulitis. Constipation. Gallbladder disease. Pancreatitis. Narrative Course Patient is medically stable although uncomfortable. Labs ordered including CBC, CMP, lactic acid, lipase, and urinalysis. EKG is performed showing sinus tachycardia without ST changes. Chest x-ray and abdominal CT with IV and oral contrast was ordered. IV access is obtained patient is given 4 mg Zofran IV as well as 4 mg morphine 20 mg Pepcid IV. Patient is given 10 mg dicyclomine IM. Patient is given 1000 mg normal saline bolus. CBC shows elevated leukocytosis of 20.4 with bandemia Chemistry shows sodium 134, potassium 3.6, lactic acid 1.3, random glucose is 116. Bilirubin is 1.2. AST is 12, ALT is 9 Urinalysis is unremarkable. Coagulation studies showed PT of 12.[address] shows questionable changes suggestive of inflammatory process the right lower quadrant but does not specifically identify appendicitis, but may show a right ovarian abscess. Ultrasound was ordered. This does not specifically show a ovarian abscess. The radiologist is unsure if this could be appendicitis or some other process. Call was placed to hospitalist Dr. Malcolm who did agree to admit the patient. However with the radiologist questioning appendicitis, a call was placed to Dr. Avilez, the on-call surgeon who agreed to come in and see the patient. Patient is kept nothing by mouth Diagnosis Primary Impression: Abdominal pain Qualified Codes: R10.31 - Right lower quadrant pain Additional Impression: Leukocytosis Qualified Codes: D72.829 - Elevated white blood cell count, unspecified Admitting Information Admitting Physician Requests: Admit Condition: Stable Bola Bird Jan 22, 2017 13:36
[2017-01-22 14:05] LABS: AUTOMATED NEUTROPHIL # 17.5 TH/MM3 (1.8-7.7); BASOPHIL % 0.1 % (0.0-2.0); HEMATOCRIT 38.8 % (35.0-46.0); HEMO FLAGS DIFF FINAL; LYMPH % 6.5 % (9.0-44.0); LYMPHOCYTE # 1.3 TH/MM3 (1.0-4.8); MEAN CELL VOLUME 91.3 FL (80.0-100.0); MEAN CORPUSCULAR HEMOGLOBIN 31.1 PG (27.0-34.0); MEAN CORPUSCULAR HGB CONC 34.1 % (32.0-36.0); MONO % 7.8 % (0.0-8.0); NEUT % 85.6 % (16.0-70.0); PLATELET COUNT 217 TH/MM3 (150-450); RED BLOOD COUNT 4.25 MIL/MM3 (4.00-5.30); WHITE BLOOD COUNT 20.4 TH/MM3 (4.0-11.0)
[2017-01-22 14:16] LABS: APTT (PATIENT) 27.4 SEC (24.3-30.1); INTERNATIONAL NORMALIZED RATIO 1.1 RATIO; PROTHROMBIN TIME - PATIENT 12.3 SEC (9.8-11.6)
[2017-01-22 14:19] LABS: ANION GAP 9 MEQ/L (5-15); AST (GOT) 12 U/L (15-37); BICARBONATE 23.3 MEQ/L (21.0-32.0); BLOOD UREA NITROGEN 8 MG/DL (7-18); CHLORIDE 102 MEQ/L (98-107); GLOMERULAR FILTRATION RATE 105 ML/MIN (>89); SODIUM (NA) 134 MEQ/L (136-145)
[2017-01-22 14:20] LABS: POTASSIUM 3.6 MEQ/L (3.5-5.1)
[2017-01-22 14:27] LABS: ALKALINE PHOSPHATASE 73 U/L (45-117); ALT (GPT) 9 U/L (10-53); TOTAL BILIRUBIN ADULT 1.2 MG/DL (0.2-1.0)
[2017-01-22 14:59] LABS: BACTERIA, URINE RARE /hpf; BLOOD, URINE MOD (NEG); COMMENT (UR) CULT NOT INDICATED; CULTURE IF INDICATED CULT NOT INDICATED; GLUCOSE,URINE NEG (NEG); KETONE, URINE NEG (NEG); NITRITE,URINE NEG (NEG); PH, URINE 6.5 (5.0-8.5); SQUAMOUS EPITHELIAL CELL URINE 2 /hpf (0-5); URINE COLOR LIGHT-YELLOW (YELLW/STRAW)
--- NOTE | 2017-01-22 15:52 | RADRPT ---
EXAM DATE/TIME: 01/22/2017 15:10 [facility] COMPARISON: No previous studies available for comparison. INDICATIONS : Abdominal pain and distension. IV CONTRAST: 95 cc Omnipaque 350 (iohexol) IV ORAL CONTRAST: No oral contrast ingested. RADIATION DOSE: 5.02 CTDIvol (mGy) MEDICAL HISTORY : Cardiovascular disease. SURGICAL HISTORY : Tubal ligation. ENCOUNTER: Initial ACUITY: 3 days PAIN SCALE: 7/10 LOCATION: Bilateral lower quadrant TECHNIQUE: Volumetric scanning of the abdomen and pelvis was performed. Using automated exposure control and adjustment of the mA and/or kV according to patient size, radiation dose was kept as low as reasonably achievable to obtain optimal diagnostic quality images. DICOM format image data is av ailable electronically for review and comparison. FINDINGS: Lung bases are clear. There is no pericardial effusion. The liver, spleen, pancreas and adrenal glands are unremarkable. The right kidney is unremarkable. The left kidney is unremarkable. There is no retroperitoneal adenopathy. The region of the cecum and terminal ileum are unremarkable. Cystic mass measuring 2 cm is seen in the right adnexal region. The left adnexal region is unremarka ble. Trace free fluid is evident. I do not see other inflammatory changes. There is no significant distension. CONCLUSION: Cystic mass right adnexal region. Trace fluid in the right pelvis. I d o not see inflammatory changes. Scattered radiopacities throughout the colon. Saman Dudley MD FACR on January 22, 2017 at 15:34 Board Certified Radiologist. This report was verified electronically.
--- NOTE | 2017-01-22 16:09 | PD ---
Physical Exam Date Seen by Provider: Jan 22, 2017 Narrative Patient presents with diffuse abdominal pain. Data Data Last Documented VS Vital Signs Date Time Temp Pulse Resp B/P (MAP) Pulse Ox O2 Delivery O2 Flow Rate FiO2 01/22/17 12:54 17 01/22/17 12:52 98.2 106 129/74 (92) 100 01/22/17 12:52 Room Air Orders Orders Complete Blood Count With Diff (01/22/17 13:10) Comprehensive Metabolic Panel (01/22/17 13:10) Lipase (01/22/17 13:10) Lactic Acid (01/22/17 13:10) Prothrombin Time / Inr (Pt) (01/22/17 13:10) Act Partial Throm Time (Ptt) (01/22/17 13:10) Urinalysis - C+S If Indicated (01/22/17 13:10) Ct Abd/Pel W Iv Contrast(Rout) (01/22/17 13:10) Iv Access Insert/Monitor (01/22/17 13:10) Ecg Monitoring (01/22/17 13:10) Oximetry (01/22/17 13:10) NPO (01/22/17 13:10) Morphine Inj (Morphine Inj) (01/22/17 13:15) Ondansetron Inj (Zofran Inj) (01/22/17 13:15) Sodium Chlor 0.9% 1000 Ml Inj (Ns 1000 M (01/22/17 13:10) Sodium Chloride 0.9% Flush (Ns Flush) (01/22/17 13:15) Electrocardiogram (01/22/17 13:10) Famotidine Inj (Pepcid Inj) (01/22/17 13:15) Iohexol 350 Inj (Omnipaque 350 Inj) (01/22/17 12:43) Labs Laboratory Tests Test 01/22/17 13:30 01/22/17 14:30 White Blood Count 20.4 TH/MM3 Red Blood Count 4.25 MIL/MM3 Hemoglobin 13.2 GM/DL Hematocrit 38.8 % Mean Corpuscular Volume 91.3 FL Mean Corpuscular Hemoglobin 31.1 PG Mean Corpuscular Hemoglobin Concent 34.1 % Red Cell Distribution Width 13.0 % Platelet Count 217 TH/MM3 Mean Platelet Volume 9.1 FL Neutrophils (%) (Auto) 85.6 % Lymphocytes (%) (Auto) 6.5 % Monocytes (%) (Auto) 7.8 % Eosinophils (%) (Auto) 0.0 % Basophils (%) (Auto) 0.1 % Neutrophils # (Auto) 17.5 TH/MM3 Lymphocytes # (Auto) 1.3 TH/MM3 Monocytes # (Auto) 1.6 TH/MM3 Eosinophils # (Auto) 0.0 TH/MM3 Basophils # (Auto) 0.0 TH/MM3 CBC Comment DIFF FINAL Differential Comment Prothrombin Time 12.3 SEC Prothromb Time International Ratio 1.1 RATIO Activated Partial Thromboplast Time 27.4 SEC Blood Urea Nitrogen 8 MG/DL Creatinine 0.74 MG/DL Random Glucose 116 MG/DL Total Protein 7.8 GM/DL Albumin 3.5 GM/DL Calcium Level 9.2 MG/DL Alkaline Phosphatase 73 U/L Aspartate Amino Transf (AST/SGOT) 12 U/L Alanine Aminotransferase (ALT/SGPT) 9 U/L Total Bilirubin 1.2 MG/DL Sodium Level 134 MEQ/L Potassium Level 3.6 MEQ/L Chloride Level 102 MEQ/L Carbon Dioxide Level 23.3 MEQ/L Anion Gap 9 MEQ/L Estimat Glomerular Filtration Rate 105 ML/MIN Lactic Acid Level 1.3 mmol/L Lipase 79 U/L Urine Color LIGHT-YELLOW Urine Turbidity CLEAR Urine pH 6.5 Urine Specific [place] 1.004 Urine Protein NEG mg/dL Urine Glucose (UA) NEG mg/dL Urine Ketones NEG mg/dL Urine Occult Blood MOD Urine Nitrite NEG Urine Bilirubin NEG Urine Urobilinogen LESS THAN 2.0 MG/DL Urine Leukocyte Esterase NEG Urine RBC 13 /hpf Urine WBC 1 /hpf Urine Squamous Epithelial Cells 2 /hpf Urine Bacteria RARE /hpf Microscopic Urinalysis Comment CULT NOT INDICATED [facility] Supervised Visit with TONEY: Yes Differential Diagnosis Differential diagnosis of abdominal pain includes but is not limited to gastritis, pancreatitis, hepatitis, gastroenteritis, gallbladder disease, constipation, urinary retention, UTI, peptic ulcer disease, diverticulitis or appendicitis Narrative Course I, Dr. Olvera, have reviewed the advance practice practitioner's documentation and am in agreement, met with the patient face to face, made the diagnosis, and the medical decision making was done by me. *My assessment and Findings: Abdomen is soft. CBC & BMP Diagram 01/22/17 13:30 Total Protein 7.8 #, Albumin 3.5 #, Calcium Level 9.2, Alkaline Phosphatase 73, Aspartate Amino Transf (AST/SGOT) 12 L, Alanine Aminotransferase (ALT/SGPT) 9 L , Total Bilirubin 1.2 H UA neg for infection. Ct abd/pelvis>>Cystic mass right adnexal region. Trace fluid in the right pelvis. I do not see inflammatory changes. Scattered radiopacities throughout the colon. WBC has increased since 2 nights ago. Condition: Stable Coty Olvera MD Jan 22, 2017 16:09
[2017-01-22] MEDS ORDERED: VANCOMYCIN INJ 1,000 MG in SODIUM CHLOR 0.9% 250 ML INJ 250 ML IV ONE (17:00)
[2017-01-22] MEDS ORDERED: PIPERACIL-TAZO 4.5 GM PREMIX 100 ML IV ONE (17:00)
[2017-01-22] MEDS ORDERED: HYDROmorphone HCL PF 1 MG/ML VIAL IV PUSH ONE (17:30)
[2017-01-22] MEDS: D5-1/2 NS + KCL 20 MEQ INJ 1,000 ML IV SCH (17:34)
[2017-01-22] MEDS ORDERED: NALOXONE HCL 0.4 MG/ML AMP IV PUSH PRN (17:45)
[2017-01-22] MEDS ORDERED: oxyCODONE/ACETAMINOPHEN 5 MG/325 MG TAB PO PRN (17:45)
[2017-01-22] MEDS ORDERED: PROCHLORPERAZINE 25 MG SUPP RECTAL PRN (17:45)
[2017-01-22] MEDS ORDERED: BISACODYL 10 MG SUPP RECTAL PRN (17:45)
[2017-01-22] MEDS ORDERED: MAGNESIUM HYDROXIDE SUSP 30 ML CUP PO PRN (17:45)
[2017-01-22] MEDS ORDERED: SENNOSIDES 8.6 MG TAB PO PRN (17:45)
[2017-01-22] MEDS ORDERED: Vancomycin Consult Pharmacy 1 EA OTHER SCH (17:45)
[2017-01-22] MEDS ORDERED: oxyCODONE/ACETAMINOPHEN 10 MG/325 MG TAB PO PRN (17:45)
[2017-01-22] MEDS ORDERED: HYDROmorphone HCL PF 1 MG/ML VIAL IV PUSH PRN ×4 (17:45→20:15)
[2017-01-22] MEDS ORDERED: ZOLPIDEM TARTRATE 5 MG TAB PO PRN (17:45)
[2017-01-22] MEDS ORDERED: ACETAMINOPHEN 325 MG TAB PO PRN ×2 (17:45)
[2017-01-22] MEDS ORDERED: LACTULOSE SYRUP 20 GM/30 ML CUP PO PRN (17:45)
[2017-01-22] MEDS: metroNIDAZOLE 500 MG INJ 100 ML IV SCH (18:00)
[2017-01-22 18:13] VITALS: O2SAT 99
--- NOTE | 2017-01-22 19:08 | RADRPT ---
EXAM DATE/TIME: 01/22/2017 17:26 [facility] COMPARISON: CT ABDOMEN & PELVIS W CONTRAST, January 22, 2017, 15:10. INDICATIONS : Abscess. MEDICAL HISTORY : Heart murmur. Asthma. Psychiatric problems. Bipolar. Pelvic inflammatory disease. SURGICAL HISTORY : Tubal ligation. [place]. ENCOUNTER: Initial ACUITY: 1 week PAIN SCORE: 9/10 LOCATION: Bilateral pelvis MEASUREMENTS: UTERUS: 7.3 x 5.7 x 4.7 cm ENDOMETRIAL STRIPE: 4 mm RIGHT OVARY: 2.9 x 2.2 x 1.6 cm LEFT OVARY: 3.4 x 3.1 x 1.9 cm FINDINGS: Uterus within normal limits. 5.4 cm structure seen in the right lower quadrant which I believe is pro bably the base of the cecum. Otherwise, small cysts are seen of both ovaries. There is no evidence of torsion. There is small free fluid in the pelvic cavity. CONCLUSION: 1. No acute TREADLE CUT OFF SAW OPERATOR abnormality is convincingly demonstrated. A few small bilateral ovarian cysts are not ed but no evidence of torsion or definite PID. 2. I have reviewed the CT and I don't convincingly see a normal appendix. There is a looped structure medial to the cecum with wall thickening; I'm not convinced its the ileum and acute appendicitis is definitely possible in the proper clinical setting, especially since I don't see a definite acute TREADLE CUT OFF SAW OPERATOR abnormality. Findings were discussed with Bola Bird P.A.-C. Steve Kerr MD on January 22, 2017 at 18:54 Board Certified Radiologist. This report was verified electronically.
[2017-01-22 19:26] VITALS: BP 111/57
[2017-01-22] MEDS ORDERED: VANCOMYCIN 1,000 MG/NS 250 ML IV ONE ×2 (19:45)
[2017-01-22 20:00] VITALS: BP 106/58; PULSE 91; RESP 18; TEMP 97.7; O2SAT 99
[2017-01-22] MEDS: PIPERACIL-TAZO 4.5 GM PREMIX 100 ML IV SCH (20:00)
[2017-01-22] MEDS: SODIUM CHLORIDE 0.9% FLUSH 10 ML FLUSH IV FLUSH SCH (21:00)
[2017-01-22] MEDS: DOCUSATE SODIUM 50 MG/SENNA 8.6 MG TAB PO SCH (21:00)
[2017-01-22] MEDS ORDERED: BUPIVACAINE/EPINEPHRINE 0.25% 50 ML VIAL ONE (22:37)
[2017-01-22] MEDS ORDERED: ACETAMINOPHEN 1000 MG/100 ML 100 ML IV ONE (23:46)
[2017-01-23] VITALS (7 sets, daily range): BP systolic 96–149; BP diastolic 53–72; PULSE 67–107; RESP 17–20; TEMP 96.6–99.4; O2SAT 98–100
--- NOTE | 2017-01-23 00:17 | HHI.PR ---
Immediate Post Op Note Procedure Date: Jan 23, 2017 Pre Op Diagnosis: acute appendicitis Post Op Diagnosis: same, necrotic inflamed appendix Surgeon: Timothy Avilez MD Patent Prosecution Attorney(s): see or sheet Procedure: lap appy Findings: necrotic purulent appendicitis Complications: none Specimen(s) removed: appendix Estimated blood loss: 5cc Anesthesia: General Drains: CHUY IVF (1300) Patient to: PACU Patient Condition: Good Timothy Avilez MD Jan 23, 2017 00:17
[2017-01-23] MEDS ORDERED: DO NOT ADM ANY ANTICOAGULANT DRUGS PRN (01:00)
[2017-01-23] MEDS: D5-1/2 NS + KCL 20 MEQ INJ 1,000 ML IV SCH ×2 (01:04→13:23)
[2017-01-23] MEDS: metroNIDAZOLE 500 MG INJ 100 ML IV SCH (01:11)
[2017-01-23] MEDS: PIPERACIL-TAZO 4.5 GM PREMIX 100 ML IV SCH ×4 (03:46→20:30)
--- NOTE | 2017-01-23 05:17 | HHI.HP ---
HPI Service [facility] Hospitalists Primary Care Physician No Primary Care Physician Admission Diagnosis Ovarian Abscess/Leukocytosis Diagnoses: Chief Complaint: abdominal pain Travel History International Travel<30 Days: No Contact w/Intl Traveler <30 Da: No Traveled to Known Affected Are: No History of Present Illness 41 y/o female with a history of bipolar presented to the ED with complaints of abdominal pain. Patient states for the last 3 days she has had diffuse abdominal pain and distention, she has been unable to have a BM or pass gas. She was seen at [facility] on Friday and diagnosed with PID and treated with doxycycline and flagyl, but states the pain did not resolve. She does have associated nausea. Denies any chest pain, sob, fever or chills. She currently rates her pain at a 6/10 intermitted cramping feeling. She does state the medication given has helped. Review of Systems Except as stated in HPI: all other systems reviewed are Neg Past Family Social History Past Medical History Bipolar Past Surgical History Right knee surgery Right rotator cuff surgery Tubal ligation Reported Medications Reported Meds & Active Scripts Active Doxycycline Hyclate 100 Mg Cap 100 Mg PO BID Flagyl (Metronidazole) 500 Mg Tab 500 Mg PO TID 10 Days Reported Zithromax (Azithromycin) 250 Mg Tab 250 Mg PO DIRECTED Take 2 tabs (500 mg) on day 1 then 1 tab daily x 4 days. Allergies: Coded Allergies: prednisone (Verified Allergy, Severe, THROAT SWELLING., 01/23/17) Active Ordered Medications Current Medications Medications (Trade) Dose Ordered Sig/Katarina Route Start Time Stop Time Status Last Admin Potassium Chloride/Dextrose/ Sod Cl 1,000 ml @ 100 mls/hr Q10H IV 01/22/17 17:34 01/23/17 01:04 (NS Flush) 2 ml UNSCH PRN IV FLUSH 01/22/17 17:45 (NS Flush) 2 ml BID IV FLUSH 01/22/17 21:00 (Zofran Inj) 4 mg Q6H PRN IVP 01/22/17 17:45 (Tylenol) 650 mg Q6H PRN PO 01/22/17 17:45 (Narcan Inj) 0.4 mg UNSCH PRN IV PUSH 01/22/17 17:45 (Reina-Colace) 1 tab BID PO 01/22/17 21:00 Pharmacy Profile Note 0 ml @ 0 mls/hr UNSCH OTHER 01/22/17 17:45 Piperacillin Sod/ Tazobactam Sod 100 ml @ 200 mls/hr Q6H IV 01/22/17 20:00 01/23/17 03:46 Metronidazole 100 ml @ 100 mls/hr Q8H IV 01/22/17 18:00 01/23/17 01:11 Vancomycin HCl 750 mg/Sodium Chloride 257.5 ml @ 257.5 mls/ hr Q12H IV 01/23/17 08:00 (Dilaudid Pf Inj) 0.5 mg Q4H PRN IV PUSH 01/22/17 20:15 01/23/17 03:47 Miscellaneous Information ALL NURSING DEPARTME... UNSCH PRN .XX 01/23/17 01:00 01/24/17 00:59 Family History Mom and Dad: HTN and DM Social History Tobacco use: 5 black and milds a day Alcohol use: Denies Illicit drug use: Denies Physical Exam Vital Signs Vital Signs Date Time Temp Pulse Resp B/P (MAP) Pulse Ox O2 Delivery O2 Flow Rate FiO2 01/23/17 02:00 96.6 67 18 109/64 (79) 98 01/23/17 01:20 97.8 65 13 106/61 (76) 99 01/23/17 01:15 66 15 95/56 (69) 97 01/23/17 01:00 71 13 110/62 (78) 98 01/23/17 00:45 83 14 112/69 (83) 99 01/23/17 00:36 97.6 95 18 111/66 (81) 98 Nasal Cannula 01/22/17 20:00 97.7 91 18 106/58 (74) 99 01/22/17 19:26 105 18 111/57 (75) 98 Nasal Cannula 2.00 01/22/17 18:13 99 21 01/22/17 12:54 17 01/22/17 12:52 98.2 106 15 129/74 (92) 100 01/22/17 12:52 99 Room Air Physical Exam GENERAL: This is a well-nourished, well-developed patient, in no apparent distress. SKIN: No rashes, ecchymoses or lesions. Cool and dry. HEAD: Atraumatic. Normocephalic. EYES: Pupils equal round and reactive. ENT: Nose without bleeding, purulent drainage or septal hematoma. Airway patent. NECK: Trachea midline. No JVD or lymphadenopathy. Supple, nontender, no meningeal signs. CARDIOVASCULAR: Regular rate and rhythm with a 2/6 systolic murmur. RESPIRATORY: Clear to auscultation. Breath sounds equal bilaterally. No wheezes , rales, or rhonchi. GASTROINTESTINAL: Abdomen soft, lower abdomen tenderness, mildly distended. Hypo BS MUSCULOSKELETAL: Extremities without clubbing, cyanosis, or edema. No joint tenderness, effusion, or edema noted. No calf tenderness. NEUROLOGICAL: Awake and alert. Motor and sensory grossly within normal limits. Normal speech. Laboratory Laboratory Tests Test 01/22/17 13:30 01/22/17 14:30 White Blood Count 20.4 Red Blood Count 4.25 Hemoglobin 13.2 Hematocrit 38.8 Mean Corpuscular Volume 91.3 Mean Corpuscular Hemoglobin 31.1 Mean Corpuscular Hemoglobin Concent 34.1 Red Cell Distribution Width 13.0 Platelet Count 217 Mean Platelet Volume 9.1 Neutrophils (%) (Auto) 85.6 Lymphocytes (%) (Auto) 6.5 Monocytes (%) (Auto) 7.8 Eosinophils (%) (Auto) 0.0 Basophils (%) (Auto) 0.1 Neutrophils # (Auto) 17.5 Lymphocytes # (Auto) 1.3 Monocytes # (Auto) 1.6 Eosinophils # (Auto) 0.0 Basophils # (Auto) 0.0 CBC Comment DIFF FINAL Differential Comment Prothrombin Time 12.3 Prothromb Time International Ratio 1.1 Activated Partial Thromboplast Time 27.4 Blood Urea Nitrogen 8 Creatinine 0.74 Random Glucose 116 Total Protein 7.8 Albumin 3.5 Calcium Level 9.2 Alkaline Phosphatase 73 Aspartate Amino Transf (AST/SGOT) 12 Alanine Aminotransferase (ALT/SGPT) 9 Total Bilirubin 1.2 Sodium Level 134 Potassium Level 3.6 Chloride Level 102 Carbon Dioxide Level 23.3 Anion Gap 9 Estimat Glomerular Filtration Rate 105 Lactic Acid Level 1.3 Lipase 79 Urine Color LIGHT-YELLOW Urine Turbidity CLEAR Urine pH 6.5 Urine Specific Campbell 1.004 Urine Protein NEG Urine Glucose (UA) NEG Urine Ketones NEG Urine Occult Blood MOD Urine Nitrite NEG Urine Bilirubin NEG Urine Urobilinogen LESS THAN 2.0 Urine Leukocyte Esterase NEG Urine RBC 13 Urine WBC 1 Urine Squamous Epithelial Cells 2 Urine Bacteria RARE Microscopic Urinalysis Comment CULT NOT INDICATED Date/Time Source Procedure Growth Status 01/22/17 19:15 Blood Peripheral Aerobic Blood Culture Pending Received 01/22/17 19:15 Blood Peripheral Anaerobic Blood Culture Pending Received Result Diagram: 01/22/17 1330 01/22/17 1330 Imaging Last Impressions Abdomen/Pelvis/Transvag US 01/22/17 1700 Signed Impressions: Service Date/Time: Friday, January 22, 2017 17:26 - CONCLUSION: 1. No acute S[employer]AND[employer] COACH abnormality is convincingly demonstrated. A few small bilateral ovarian cysts are noted but no evidence of torsion or definite PID. 2. I have reviewed the CT and I don't convincingly see a normal appendix. There is a looped structure medial to the cecum with wall thickening; I'm not convinced its the ileum and acute appendicitis is definitely possible in the proper clinical setting, especially since I don't see a definite acute S[employer] STANDAR[employer] COACH abnormality. Findings were discussed with Bola Bird P.A.-C. Steve Kerr MD Abdomen/Pelvis CT 01/22/17 1310 Signed Impressions: Service Date/Time: Sunday, January 22, 2017 15:10 - CONCLUSION: Cystic mass right adnexal region. Trace fluid in the right pelvis. I do not see inflammatory changes. Scattered radiopacities throughout the colon. Saman Dudley MD FACR Caprini VTE Risk Assessment Caprini VTE Risk Assessment: No/Low Risk (score <= 1) Caprini Risk Assessment Model Point Value = 1 Point Value = 2 Point Value = 3 Point Value = 5 Age 41-60 Minor surgery BMI > 25 kg/m2 Swollen legs Varicose veins or History of unexplained or recurrent spontaneous Oral contraceptives or hormone replacement Sepsis (< 1 month) Serious lung disease, including pneumonia (< 1 month) Abnormal pulmonary function Acute myocardial infarction Congestive heart failure (< 1 month) History of inflammatory bowel disease Medical patient at bed rest Age 61-74 Arthroscopic surgery Major open surgery (> 45 min) Laparoscopic surgery (> 45 min) Malignancy Confined to bed (> 72 hours) Immobilizing plaster cast Central venous access Age >= 75 History of VTE Family history of VTE Factor V Leiden Prothrombin [id number] Lupus anticoagulant Anticardiolipin antibodies Elevated serum homocysteine Heparin-induced thrombocytopenia Other congenital or acquired thrombophilia Stroke (< 1 month) Elective arthroplasty Hip, pelvis, or leg fracture Acute spinal cord injury (< 1 month) Prophylaxis Regimen Total Risk Factor Score Risk Level Prophylaxis Regimen 0-1 Low Early ambulation 2 Moderate Order ONE of the following: *Sequential Compression Device (SCD) *Heparin 5000 units SQ BID 3-4 Higher Order ONE of the following medications: *Heparin 5000 units SQ TID *Enoxaparin/Lovenox 40 mg SQ daily (WT < 150 kg, CrCl > 30 mL/min) *Enoxaparin/Lovenox 30 mg SQ daily (WT < 150 kg, CrCl > 10-29 mL/min) *Enoxaparin/Lovenox 30 mg SQ BID (WT < 150 kg, CrCl > 30 mL/min) AND/OR *Sequential Compression Device (SCD) 5 or more Highest Order ONE of the following medications: *Heparin 5000 units SQ TID (Preferred with Epidurals) *Enoxaparin/Lovenox 40 mg SQ daily (WT < 150 kg, CrCl > 30 mL/min) *Enoxaparin/Lovenox 30 mg SQ daily (WT < 150 kg, CrCl > 10-29 mL/min) *Enoxaparin/Lovenox 30 mg SQ BID (WT < 150 kg, CrCl > 30 mL/min) AND *Sequential Compression Device (SCD) Assessment and Plan Problem List: (1) Acute appendicitis ICD Code: K35.80 - Unspecified acute appendicitis (2) Leukocytosis ICD Code: D72.829 - Elevated white blood cell count, unspecified Status: Acute Assessment and Plan 41 y/o female with a history of bipolar presented to the ED with complaints of abdominal pain. Acute appendicitis, patient with abdominal pain and distention for [address] reviewed and shows cystic mass right adnexal region, with a looped structure medial to the cecum with wall thickening. No SCHOOL STANDARDS COACH abnormality -Consult General surgery, Dr. Avilez took patient to OR for appendectomy -Clear liquid diet -CHUY to bulb suction, managed by surgery -Pain management with IV Dilaudid -IV antibiotics Vancomycin and Zosyn Leukocytosis, wbc 20.4, suspect due to appendicitis -IV antibiotics as above -Labs in AM DVT prophylaxis: SCDs Discussed Condition With Patient and RN Physician Certification 2 Midnight Certification Type: Admission for Inpatient Services Order for Inpatient Services The services are ordered in accordance with Medicare regulations or non- Medicare payer requirements, as applicable. In the case of services not specified as inpatient-only, they are appropriately provided as inpatient services in accordance with the 2-midnight benchmark. Estimated LOS (days): 3 days is the estimated time the patient will need to remain in the hospital, assuming treatment plan goals are met and no additional complications. Post-Hospital Plan: Home Problem Qualifiers (1) Leukocytosis: Qualified Codes: D72.829 - Elevated white blood cell count, unspecified Michelle Duffy Jan 23, 2017 05:17
[2017-01-23] MEDS ORDERED: SIMETHICONE 80 MG CHEWABLE TAB CHEW ONE (06:00)
[2017-01-23] MEDS: HYDROmorphone HCL PF 1 MG/ML VIAL IV PUSH PRN ×4 (06:28→20:30)
[2017-01-23 07:35] LABS: AUTOMATED NEUTROPHIL # 11.3 TH/MM3 (1.8-7.7); BASOPHIL % 0.1 % (0.0-2.0); EOSINOPHIL % 0.1 % (0.0-4.0); HEMATOCRIT 35.9 % (35.0-46.0); HEMO FLAGS DIFF FINAL; LYMPHOCYTE # 1.1 TH/MM3 (1.0-4.8); MEAN CELL VOLUME 93.2 FL (80.0-100.0); MEAN CORPUSCULAR HEMOGLOBIN 31.5 PG (27.0-34.0); MEAN CORPUSCULAR HGB CONC 33.8 % (32.0-36.0); MONO % 6.9 % (0.0-8.0); NEUT % 84.9 % (16.0-70.0); PLATELET COUNT 199 TH/MM3 (150-450); RED BLOOD COUNT 3.86 MIL/MM3 (4.00-5.30); RED CELL DISTRIBUTION WIDTH 13.3 % (11.6-17.2); WHITE BLOOD COUNT 13.3 TH/MM3 (4.0-11.0)
[2017-01-23] MEDS ORDERED: VANCOMYCIN INJ 750 MG in SODIUM CHLOR 0.9% 250 ML INJ 250 ML IV SCH (08:00)
--- NOTE | 2017-01-23 08:02 | EKG ---
Date Performed: 01/22/2017 Time Performed: 13:25:14 PTAGE: 41 years EKG: SINUS TACHYCARDIA WITH SHORT AL INTERVAL NONSPECIFIC T-WAVE ABNORMALITY ABNORMAL RHYTHM ECG Since PREVIOUS TRACING , no significant change noted PREVIOUS TRACIN06/05/2016 20.53 DOCTOR: Mariah Myers Interpretating Date/Time 01/23/2017 08:00:33
[2017-01-23 08:05] LABS: ALT (GPT) 11 U/L (10-53); ANION GAP 8 MEQ/L (5-15); BICARBONATE 26.5 MEQ/L (21.0-32.0); BLOOD UREA NITROGEN 6 MG/DL (7-18); CHLORIDE 102 MEQ/L (98-107); POTASSIUM 3.3 MEQ/L (3.5-5.1); SODIUM (NA) 136 MEQ/L (136-145)
[2017-01-23 08:06] LABS: AST (GOT) 6 U/L (15-37); GLOMERULAR FILTRATION RATE 87 ML/MIN (>89)
[2017-01-23 08:14] LABS: ALKALINE PHOSPHATASE 66 U/L (45-117); FREE T4 1.33 NG/DL (0.76-1.46); TOTAL BILIRUBIN ADULT 1.1 MG/DL (0.2-1.0)
[2017-01-23] MEDS: SODIUM CHLORIDE 0.9% FLUSH 10 ML FLUSH IV FLUSH SCH ×2 (09:00→20:35)
[2017-01-23] MEDS: DOCUSATE SODIUM 50 MG/SENNA 8.6 MG TAB PO SCH ×2 (09:05→20:34)
[2017-01-23] MEDS: PANTOPRAZOLE SOD 40 MG DELAYED RELEASE TAB PO SCH (10:21)
[2017-01-23] MEDS ORDERED: ACETAMINOPHEN 325 MG TAB PO PRN (10:45)
[2017-01-23] MEDS ORDERED: POTASSIUM PHOSPHATE MONOBASIC 500 MG TAB PO ONE (10:45)
--- NOTE | 2017-01-23 10:58 | HHI.PR ---
Subjective Remarks Overall pain control. Tolerating clear liquids. No complaints of chest pain or shortness of breath. Objective Vitals Vital Signs Date Time Temp Pulse Resp B/P (MAP) Pulse Ox O2 Delivery O2 Flow Rate FiO2 01/23/17 09:17 98 21 01/23/17 08:50 97.8 107 20 110/72 (85) 100 01/23/17 04:00 97.0 93 17 149/58 (88) 98 01/23/17 02:00 96.6 67 18 109/64 (79) 98 01/23/17 01:20 97.8 65 13 106/61 (76) 99 01/23/17 01:15 66 15 95/56 (69) 97 01/23/17 01:00 71 13 110/62 (78) 98 01/23/17 00:45 83 14 112/69 (83) 99 01/23/17 00:36 97.6 95 18 111/66 (81) 98 Nasal Cannula 01/22/17 20:00 97.7 91 18 106/58 (74) 99 01/22/17 19:26 105 18 111/57 (75) 98 Nasal Cannula 2.00 01/22/17 18:13 99 21 01/22/17 12:54 17 01/22/17 12:52 98.2 106 15 129/74 (92) 100 01/22/17 12:52 99 Room Air I/O 01/22/17 01/22/17 01/22/17 01/23/17 01/23/17 01/23/17 07:00 15:00 23:00 07:00 15:00 23:00 Intake Total 1000 ml 1300 ml 100 ml Output Total 135 ml Balance 1000 ml 1165 ml 100 ml Intake IV Total 1000 ml 100 ml Other 1300 ml Output Drainage Total 130 ml Other 5 ml Result Diagram: 01/23/1761401/23/17614 Other Results Item Value Date Time Phosphorus Level 1.8 MG/DL L 01/23/17614 Objective Remarks GENERAL: This is a well-nourished, well-developed patient, in no apparent distress. CARDIOVASCULAR: Regular rate and rhythm RESPIRATORY: Clear to auscultation. Breath sounds equal bilaterally. No wheezes , rales, or rhonchi. GASTROINTESTINAL: Abdomen soft, bilateral lower quadrant tenderness with no rebound or guarding, nondistended. , CHUY drain in place, bandage in place. Positive active bowel sounds MUSCULOSKELETAL: Extremities without clubbing, cyanosis, or edema. NEURO: Alert & Oriented x4 to person, place, time, situation. Moves all ext x4 A/P Problem List: (1) Sepsis ICD Code: A41.9 - Sepsis, unspecified organism (2) Acute appendicitis ICD Code: K35.80 - Unspecified acute appendicitis (3) Leukocytosis ICD Code: D72.829 - Elevated white blood cell count, unspecified Status: Acute Assessment and Plan 41 y/o female with a history of bipolar presented to the ED with complaints of abdominal pain. Sepsis present on admission with symptoms of tachycardia and leukocytosis with findings of acute appendicitis. IV fluid hydration supportive care with blood cultures currently pending with continue IV antibiotics.- Acute appendicitis, patient with abdominal pain and distention for 3 days status post operative day #1 diagnostic laparoscopic appendectomy with general surgery Dr. Avilez with findings of chronic purulent drainage - advance to clear liquid diet and continued CHUY drain monitoring per general surgery and postoperative care. Encourage ambulation. Pain control. Add oral pain medication to IV Dilaudid when necessary. Will discontinue IV vancomycin and continue with IV Zosyn. Leukocytosis, wbc 20.4 present on admission, sepsis due to appendicitis- improved on antibiotics. Hypokalemia- replete Hypophosphatemia -supplement DVT prophylaxis: SCDs Discharge Planning Home when medically stable. Problem Qualifiers (1) Leukocytosis: Qualified Codes: D72.829 - Elevated white blood cell count, unspecified Marni Caraballo MD Jan 23, 2017 10:58
[2017-01-23] MEDS: ACETAMINOPHEN/HYDROcodone 325 MG/5 MG TAB PO PRN (12:59)
[2017-01-23] MEDS: SODIUM CHLORIDE 0.9% FLUSH 10 ML FLUSH IV FLUSH PRN (15:39)
[2017-01-23 16:21] LABS: HEMOGLOBIN A1b 0.5 %; HEMOGLOBIN Ao 53.4 %; HEMOGLOBIN F 1.4 %; HEMOGLOBIN LA1C 1.3 %; HEMOGLOBIN P3 2.2 %
--- NOTE | 2017-01-23 20:35 | HHI.PR ---
Subjective Subjective Notes pain has improved, incisional tenderness, no fevers Objective Vitals/I&O Vital Signs Date Time Temp Pulse Resp B/P (MAP) Pulse Ox O2 Delivery O2 Flow Rate FiO2 01/23/17 16:00 98.0 84 20 96/53 (67) 100 01/23/17 09:17 21 01/23/17 00:36 Nasal Cannula 01/22/17 19:26 2.00 Labs Laboratory Tests Test 01/23/17 06:15 White Blood Count 13.3 Red Blood Count 3.86 Hemoglobin 12.1 Hematocrit 35.9 Mean Corpuscular Volume 93.2 Mean Corpuscular Hemoglobin 31.5 Mean Corpuscular Hemoglobin Concent 33.8 Red Cell Distribution Width 13.3 Platelet Count 199 Mean Platelet Volume 9.6 Neutrophils (%) (Auto) 84.9 Lymphocytes (%) (Auto) 8.0 Monocytes (%) (Auto) 6.9 Eosinophils (%) (Auto) 0.1 Basophils (%) (Auto) 0.1 Neutrophils # (Auto) 11.3 Lymphocytes # (Auto) 1.1 Monocytes # (Auto) 0.9 Eosinophils # (Auto) 0.0 Basophils # (Auto) 0.0 CBC Comment DIFF FINAL Differential Comment Blood Urea Nitrogen 6 Creatinine 0.87 Random Glucose 119 Total Protein 7.0 Albumin 3.2 Calcium Level 8.6 Phosphorus Level 1.8 Magnesium Level 2.0 Alkaline Phosphatase 66 Aspartate Amino Transf (AST/SGOT) 6 Alanine Aminotransferase (ALT/SGPT) 11 Total Bilirubin 1.1 Sodium Level 136 Potassium Level 3.3 Chloride Level 102 Carbon Dioxide Level 26.5 Anion Gap 8 Estimat Glomerular Filtration Rate 87 Hemoglobin A1c 5.9 Free Thyroxine 1.33 Thyroid Stimulating Hormone 3rd Gen 0.750 Date/Time Source Procedure Growth Status 01/22/17 19:15 Blood Peripheral Aerobic Blood Culture - Preliminary NO GROWTH IN 1 DAY Resulted 01/22/17 19:15 Blood Peripheral Anaerobic Blood Culture - Preliminary NO GROWTH IN 1 DAY Resulted Abdomen: Other (soft incisions c/d/i mercedes seropurulent) A/P Assessment and Plan POD 1 Lap appy plan clears diet oob pain control iv abx Timothy vAilez MD Jan 23, 2017 20:35
--- NOTE | 2017-01-23 21:14 | MB ---
cc: LEXIS APPLE MD DATE OF CONSULTATION 01/22/17 CHIEF COMPLAINT Abdominal pain. HISTORY OF PRESENT ILLNESS The patient is a 41-year-old female who presents with acute onset of abdominal pain. She stated the pain started several days ago and continued to get worse. She noted around Friday or Friday she came to the emergency department at [facility]. Further workup included negative workup 11,000 WBC and was basically sent home and told to follow up with urology. She had persistent pain, returned to [place] emergency department where she had further workup and again concern for a possible PID treated with antibiotics and again the patient states the pain got severe, so she decided to come to [place] for further evaluation. She had a CT scan with IV contrast showing concern for a possible thickened appendix, however, this was not definitive. Surgery was consulted for further evaluation. The patient stated her pain was initially a 9/10, currently it is a 6/10 with IV pain medications. She has had several episodes of nausea, vomiting, decreased p.o. intake. She has had some subjective fevers and her pain was located right lower quadrant and bilaterally radiating to the left lower quadrant. It was sharp in nature and worse with movement, better with lying still. She denies significant diarrhea or constipation. PAST MEDICAL HISTORY 1. Asthma, 2. Heart murmur. PAST SURGICAL HISTORY 1. Cerclage 2. Tubal ligation SOCIAL HISTORY Smokes five cigarettes a day, denies ETOH or IVDA. She is a mechanic industrial truck. ALLERGIES NO KNOWN DRUG ALLERGIES. MEDICATIONS See EMR. FAMILY HISTORY Denies hypertension, diabetes. REVIEW OF SYSTEMS GENERAL: Positive fevers subjective, positive chills. HEENT: Denies eye pain, ear pain. LUNGS: Denies cough or wheeze. HEART: Denies palpitation or chest pain. ABDOMEN: Complains of nausea, vomiting, abdominal pain. : Denies dysuria, hematuria. ENDOCRINE: Denies polyuria, polydipsia. PHYSICAL EXAMINATION GENERAL: The patient in no acute distress. VITAL SIGNS: Temperature 98.2, pulse 106, respirations 17, blood pressure 129/74, saturation 100% HEENT: Pupils equal, round, reactive to light and accommodation. NECK: Supple. Trachea midline. LUNGS: Clear to auscultation. HEART: S1-S2 regular rhythm. ABDOMEN: Soft, positive tenderness to palpation bilateral lower quadrants, right worse than left. Minimal rebound. No significant guarding. Well-healed surgical scars. NEUROLOGIC: GCS 15. 5/5 motor all extremities. PSYCHIATRIC: Good mood and good affect. LABORATORY AND DIAGNOSTIC DATA WBC 20.4, hemoglobin 13.2, hematocrit 30.8, platelet 217. Sodium 134, potassium 3.6, CO2 102, creatinine 0.74, BUN eight, glucose 116, T bili 1.2, AST 12, ALT nine, INR is 1.1. IMAGING STUDIES CT scan reviewed by myself showing cystic mass like structure right adnexa. Trace fluid in pelvis, concern for acute appendicitis after further review. ASSESSMENT The patient is 41-year-old female, concern for acute onset abdominal pain, rule out appendicitis. PLAN After full clinical radiologic laboratory workup, the patient with above-named issues including concern for acute appendicitis. At this point, I discussed with the patient in detail regarding diagnostic laparoscopy, possible laparoscopic appendectomy. She is agreeable to this and would like to proceed with operative evaluation and intervention. We will make the patient n.p.o., IV fluids, pain control and give IV antibiotics. Again discussed with the patient in detail. MD GRICEL Liu/ /8:29 PM /9:01 PM
[2017-01-24] VITALS (7 sets, daily range): BP systolic 99–111; BP diastolic 52–69; PULSE 75–89; RESP 16–20; TEMP 97.7–99.3; O2SAT 98–100
[2017-01-24] MEDS: HYDROmorphone HCL PF 1 MG/ML VIAL IV PUSH PRN ×3 (00:33→16:46)
[2017-01-24] MEDS: D5-1/2 NS + KCL 20 MEQ INJ 1,000 ML IV SCH ×2 (00:35→15:20)
[2017-01-24] MEDS: PIPERACIL-TAZO 4.5 GM PREMIX 100 ML IV SCH ×4 (01:22→20:17)
[2017-01-24] MEDS: ONDANSETRON HCL 4 MG/2 ML VIAL IVP PRN (01:22)
--- NOTE | 2017-01-24 07:48 | MP ---
cc: LEXIS AVILEZ MD DATE OF SURGERY 01/23/2017 PREOPERATIVE DIAGNOSIS Right lower quadrant, bilateral lower quadrant abdominal pain, rule out appendicitis. POSTOPERATIVE DIAGNOSIS Purulent necrotic appendicitis. PROCEDURE PERFORMED Laparoscopic appendectomy. SURGEON Dr. Lexis Avilez AUTOMATIC ENGRAVER See OR sheet. ANESTHESIA GETA IV FLUIDS See anesthesia sheet. ESTIMATED BLOOD LOSS 10 cc DRAINS A 10-Korean Chris drain COMPLICATIONS None WOUND CLASSIFICATION Contaminated SPECIMEN Appendix FINDINGS Purulent necrotic appendix. INDICATION The patient is a 41-year-old female who presented with acute onset of abdominal pain. The patient initially went to [facility] with a concern for possible UTI or PID sent home on antibiotics. Returned to [place] with similar complaints for which she was sent home and told to follow up with Urology for hematuria for which she returned to the hospital again with concerns of thickened appendix. No free air. No free fluid. Decision was made for operative intervention including diagnostic laparoscopy and laparoscopic appendectomy. Discussed with the patient in detail. PROCEDURE OF THE PROCEDURE The patient was taken to the operating suite, placed in the supine position. She was prepped and draped in the usual sterile fashion after induction of general trache anesthesia. A brief time-out done stating correct patient, procedure surgical site and we were all in agreement with this. Attention first directed to the umbilicus where a stab jose f incision was made with a 15 blade. A Veress needle placed. Intra-abdominal placement confirmed with saline drop test. Abdomen insufflated to 15 mm pneumoperitoneum. The Veress needle exchanged for a 5-mm endoscope and a 5-mm port. On cursory inspection, no evidence of injury. Two other ports placed on suprapubic 5 mm followed by a left lower quadrant 12 mm port. The patient placed in Trendelenburg and airplaned to the last. The right lower quadrant was explored. There was noted to be a loop of bowel draped over the appendix. The appendix was noted to be hemorrhagic, necrotic and grossly purulent with severely inflamed appendicitis. This was dissected and mobilized to identify the base of the appendix which again had some necrotic debris around it. A vascular stapler was attempted to transect the mesial appendix and appendix. With some success, an Endoloop was placed proximal to this around the bottle packing machine cleaner healthy base in order to ligate the appendix. The appendix was placed in the EndoCatch bag and removed from the abdomen. Suction irrigation used to thoroughly irrigate the abdomen until effluent was clear. A 10-Korean CHUY drain was placed in the pelvis by the appendix. This was placed out through the suprapubic incision and secured with 2-0 nylon. The left lower quadrant incision was closed with a 0 Vicryl. All ports were closed with 4-0 Monocryl and pneumoperitoneum was removed after the ports were removed. The patient tolerated the procedure well. There were no intraoperative complications. The patient was extubated and taken to the PACU. All lap and instrument counts were correct at the end of the procedure. MD GRICEL Liu/SAMUEL /7:21 PM /7:31 AM
[2017-01-24] MEDS: SODIUM CHLORIDE 0.9% FLUSH 10 ML FLUSH IV FLUSH SCH ×2 (09:00→20:17)
[2017-01-24] MEDS: ACETAMINOPHEN/HYDROcodone 325 MG/5 MG TAB PO PRN (09:02)
[2017-01-24] MEDS: DOCUSATE SODIUM 50 MG/SENNA 8.6 MG TAB PO SCH ×2 (09:03→20:15)
[2017-01-24] MEDS: PANTOPRAZOLE SOD 40 MG DELAYED RELEASE TAB PO SCH (09:03)
--- NOTE | 2017-01-24 10:08 | HHI.PR ---
Subjective Subjective Notes Resting in bed Pain increased when moving Objective Vitals/I&O Vital Signs Date Time Temp Pulse Resp B/P (MAP) Pulse Ox O2 Delivery O2 Flow Rate FiO2 01/24/17 08:23 98 21 01/24/17 08:00 99.0 84 16 104/69 (81) 01/23/17 00:36 Nasal Cannula 01/22/17 19:26 2.00 Labs Laboratory Tests Test 01/24/17 08:57 Date/Time Source Procedure Growth Status 01/22/17 19:15 Blood Peripheral Aerobic Blood Culture - Preliminary NO GROWTH IN 1 DAY Resulted 01/22/17 19:15 Blood Peripheral Anaerobic Blood Culture - Preliminary NO GROWTH IN 1 DAY Resulted Cardiovascular: Regular Lungs: Clear Abdomen: Other (distended; lap sites c/d/i; CHUY with serous fluid ) Extremities: No edema A/P Assessment and Plan 41 year old female POD2 lap appy; gangrenous -Continue clear liquids as patient likely has post op ileus -OOB and mobilize -Pain control -Continue IVF fluids -Continue antibiotics -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 I reviewed and agree with the findings presented. I attest that I had a [id number] encounter with the patient on the same day, and personally performed and documented my assessment and findings in the medical record. Keira Glass Jan 24, 2017 10:08 Timothy Avilez MD Jan 27, 2017 10:42
[2017-01-24 10:36] LABS: BICARBONATE 28.5 MEQ/L (21.0-32.0); POTASSIUM 3.4 MEQ/L (3.5-5.1)
--- NOTE | 2017-01-24 11:22 | HHI.PR ---
Subjective Remarks States that her pain is controlled well. Wants to eat her snow crabs from home. Wants more to eat other than clear liquids. Wants to take showers. Objective Vitals Vital Signs Date Time Temp Pulse Resp B/P (MAP) Pulse Ox O2 Delivery O2 Flow Rate FiO2 01/24/17 08:23 98 21 01/24/17 08:00 99.0 84 16 104/69 (81) 100 01/24/17 05:35 20 01/24/17 04:00 99.3 80 20 111/66 (81) 99 01/24/17 00:00 98.5 84 19 111/59 (76) 100 01/23/17 20:25 21 01/23/17 20:00 98.5 93 19 109/58 (75) 98 01/23/17 16:00 98.0 84 20 96/53 (67) 100 01/23/17 12:29 99.4 84 20 104/59 (74) 100 I/O 01/23/17 01/23/17 01/23/17 01/24/17 01/24/17 01/24/17 07:00 15:00 23:00 07:00 15:00 23:00 Intake Total 1300 ml 450 ml 1920 ml 3331 ml 152 ml Output Total 135 ml 65 ml 30 ml 588 ml Balance 1165 ml 385 ml 1890 ml 2743 ml 152 ml Intake Oral 1920 ml 220 ml IV Total 450 ml 3111 ml 152 ml Other 1300 ml Output Urine Total 500 ml Drainage Total 130 ml 65 ml 30 ml 88 ml Other 5 ml # Voids 4 # Bowel Movements 0 Result Diagram: 01/23/17 0615 01/24/17 0857 Other Results Microbiology Date/Time Source Procedure Growth Status 01/22/17 19:15 Blood Peripheral Aerobic Blood Culture - Preliminary NO GROWTH IN 2 DAYS Resulted 01/22/17 19:15 Blood Peripheral Anaerobic Blood Culture - Preliminary NO GROWTH IN 2 DAYS Resulted Objective Remarks GENERAL: This is a well-nourished, well-developed patient, in no apparent distress. CARDIOVASCULAR: Regular rate and rhythm RESPIRATORY: Clear to auscultation. Breath sounds equal bilaterally. No wheezes , rales, or rhonchi. GASTROINTESTINAL: Abdomen soft, bilateral lower quadrant tenderness with no rebound or guarding, nondistended. , CHUY drain in place, bandage in place with serosanguineous drainage. Positive bowel sounds, abdominal binder on MUSCULOSKELETAL: Extremities without clubbing, cyanosis, or edema. NEURO: Alert & Oriented x4 to person, place, time, situation. Moves all ext x4 A/P Problem List: (1) Sepsis ICD Code: A41.9 - Sepsis, unspecified organism (2) Acute appendicitis ICD Code: K35.80 - Unspecified acute appendicitis (3) Leukocytosis ICD Code: D72.829 - Elevated white blood cell count, unspecified Status: Acute Assessment and Plan 41 y/o female with a history of bipolar presented to the ED with complaints of abdominal pain. Sepsis present on admission with symptoms of tachycardia and leukocytosis with findings of acute appendicitis. IV fluid hydration supportive care with blood cultures currently pending but with no growth to date; continue IV antibiotics, Zosyn.- Acute appendicitis, status post operative day #2 diagnostic laparoscopic appendectomy with general surgery Dr. Avilez with findings of chronic purulent drainage - tolerating clear liquid diet and continued CHUY drain monitoring per general surgery and postoperative care. Encourage ambulation. Pain control. Continue oral pain medication to IV Dilaudid when necessary. Encourage activity. Advance to full liquids when okay with general surgery Leukocytosis, wbc 20.4 present on admission, sepsis due to appendicitis- improved on antibiotics. Hypokalemia- replete Hypophosphatemia -supplement DVT prophylaxis: SCDs Discharge Planning Home when medically stable. Problem Qualifiers (1) Leukocytosis: Qualified Codes: D72.829 - Elevated white blood cell count, unspecified Marni Caraballo MD Jan 24, 2017 11:22
--- NOTE | 2017-01-24 11:41 | PD.CONS ---
History & Physical H&P S:Patient is a 41 y/o [id number] F w/hx of gonorrhea and chlamydia POD#2 s/p acute appendicitis who was admitted to [facility] on 01/22 for diffuse abdominal pain. Went to [facility] ED on 01/19 for similar complaint and diagnosed with PID. D/C 'd on doxy and flagyl for treatment. However, abdominal pain continued and presented to [facility] with worsened abdominal pain, distension, nausea and vomiting, +chills, and tachycardia. Also endorses hematuria. Labs showed elevated WBC count. Admitted for sepsis secondary to acute appendicitis. CT was ordered and suggested appendicitis and possible right ovarian abscess. F/u ultrasound did not specifically show ovarian abscess. Admitted for sepsis secondary to acute appendicitis. Underwent surgery on night of 01/22/17. CHUY drain found to contain purulent drainage on POD#1. powerhouse electrician apprentice was consulted due to recently diagnosed PID and questionable right ovarian abscess observed on CT. Since surgery, her diffuse abdominal pain has significantly resolved but she still feels distended. riveter pneumatic hx Age of menarche:13 years Menstrual cycles q1 month Periods last 7-10 days Currently menstruating Hx of chlamydia and gonorrhea x several Hx of PID, last infection was years ago Vaginal deliveries x3 Induced abortions x3, 1 miscarriage Med Hx bipolar Allergies steroids - throat swelling Surg Hx circlage tubal ligation ACL, MCL repair rotator cuff repair appendectomy FH: DM, HTN, asthma, and cancer No smoking, ETOH or drug use O: Vitals within normal limits Cardio: RRR Lungs: clear bilaterally Abdomen: diffusely tender to palpation : bleeding in the vaginal vault consistent with menstruation. No lesion, abnormaliites noted. Cervix mid-line, no masses noted. + cervical motion tenderness. A/P: Patient is a 41 y/o who is POD # 2 appendectomy who presents with PID. Vanc 750 mg 1x 01/23. Currently receiving Zosyn Day #2. Ovarian abscess unlikely based on unremarkable pelvic and speculum exam. G/C serology is negative. Pelvis appears normal on ultrasound, no evidence of AERODYNAMICS TEACHER abscess. AERODYNAMICS TEACHER to sign off. Thank you. Maura Roque Dr., MD R1 Jan 24, 2017 11:41
[2017-01-24] MEDS ORDERED: NALOXONE HCL 0.4 MG/ML AMP IV PUSH PRN (12:15)
[2017-01-24] MEDS ORDERED: oxyCODONE/ACETAMINOPHEN 5 MG/325 MG TAB PO PRN (12:15)
[2017-01-24] MEDS ORDERED: POTASSIUM PHOSPHATE MONOBASIC 500 MG TAB PO ONE (13:00)
[2017-01-24] MEDS: oxyCODONE/ACETAMINOPHEN 10 MG/325 MG TAB PO PRN (20:16)
[2017-01-25] VITALS: BP 92/50; PULSE 77; RESP 17; TEMP 99; O2SAT 98
[2017-01-25] MEDS: oxyCODONE/ACETAMINOPHEN 10 MG/325 MG TAB PO PRN ×3 (02:26→16:41)
[2017-01-25] MEDS: PIPERACIL-TAZO 4.5 GM PREMIX 100 ML IV SCH ×4 (02:28→21:26)
[2017-01-25] MEDS: ONDANSETRON HCL 4 MG/2 ML VIAL IVP PRN ×3 (02:29→21:24)
[2017-01-25] MEDS: D5-1/2 NS + KCL 20 MEQ INJ 1,000 ML IV SCH (03:00)
[2017-01-25 04:00] VITALS: BP 118/70; PULSE 82; RESP 16; TEMP 98; O2SAT 100
[2017-01-25] MEDS ORDERED: LACTULOSE SYRUP 20 GM/30 ML CUP PO ONE (04:00)
[2017-01-25] MEDS ORDERED: PHARMACY ORDERED LAB ONE (07:45)
[2017-01-25 07:52] LABS: AUTOMATED NEUTROPHIL # 7.2 TH/MM3 (1.8-7.7); BASOPHIL % 0.2 % (0.0-2.0); EOSINOPHIL # 0.1 TH/MM3 (0-0.4); EOSINOPHIL % 0.8 % (0.0-4.0); HEMATOCRIT 32.9 % (35.0-46.0); HEMO FLAGS DIFF FINAL; LYMPH % 14.4 % (9.0-44.0); LYMPHOCYTE # 1.3 TH/MM3 (1.0-4.8); MEAN CELL VOLUME 93.1 FL (80.0-100.0); MEAN CORPUSCULAR HEMOGLOBIN 31.1 PG (27.0-34.0); MEAN CORPUSCULAR HGB CONC 33.4 % (32.0-36.0); MONO % 8.3 % (0.0-8.0); NEUT % 76.3 % (16.0-70.0); PLATELET COUNT 218 TH/MM3 (150-450); RED BLOOD COUNT 3.54 MIL/MM3 (4.00-5.30); RED CELL DISTRIBUTION WIDTH 12.9 % (11.6-17.2); WHITE BLOOD COUNT 9.4 TH/MM3 (4.0-11.0)
[2017-01-25 08:00] VITALS: BP 123/73; PULSE 85; RESP 20; TEMP 98.5; O2SAT 100
[2017-01-25 08:14] LABS: POTASSIUM 3.6 MEQ/L (3.5-5.1)
[2017-01-25] MEDS: PANTOPRAZOLE SOD 40 MG DELAYED RELEASE TAB PO SCH (08:26)
[2017-01-25] MEDS: DOCUSATE SODIUM 50 MG/SENNA 8.6 MG TAB PO SCH ×3 (08:26→21:00)
[2017-01-25] MEDS: SODIUM CHLORIDE 0.9% FLUSH 10 ML FLUSH IV FLUSH SCH ×2 (08:26→21:23)
[2017-01-25] MEDS ORDERED: BISACODYL 10 MG SUPP RECTAL ONE (08:30)
--- NOTE | 2017-01-25 08:39 | HHI.PR ---
Subjective Subjective Notes still with pain, tolerating clears, no bm no flatus Objective Vitals/I&O Vital Signs Date Time Temp Pulse Resp B/P (MAP) Pulse Ox O2 Delivery O2 Flow Rate FiO2 01/25/17 04:00 98.0 82 16 118/70 (86) 100 01/24/17 08:23 21 01/23/17 00:36 Nasal Cannula 01/22/17 19:26 2.00 Labs Laboratory Tests Test 01/24/17 08:57 01/25/17 06:27 Blood Urea Nitrogen 1 1 Creatinine 0.62 0.68 Random Glucose 97 95 Calcium Level 8.4 9.1 Phosphorus Level 1.6 Sodium Level 136 139 Potassium Level 3.4 3.6 Chloride Level 103 103 Carbon Dioxide Level 28.5 28.0 Anion Gap 5 8 Estimat Glomerular Filtration Rate 129 116 White Blood Count 9.4 Red Blood Count 3.54 Hemoglobin 11.0 Hematocrit 32.9 Mean Corpuscular Volume 93.1 Mean Corpuscular Hemoglobin 31.1 Mean Corpuscular Hemoglobin Concent 33.4 Red Cell Distribution Width 12.9 Platelet Count 218 Mean Platelet Volume 9.0 Neutrophils (%) (Auto) 76.3 Lymphocytes (%) (Auto) 14.4 Monocytes (%) (Auto) 8.3 Eosinophils (%) (Auto) 0.8 Basophils (%) (Auto) 0.2 Neutrophils # (Auto) 7.2 Lymphocytes # (Auto) 1.3 Monocytes # (Auto) 0.8 Eosinophils # (Auto) 0.1 Basophils # (Auto) 0.0 CBC Comment DIFF FINAL Differential Comment Date/Time Source Procedure Growth Status 01/22/17 19:15 Blood Peripheral Aerobic Blood Culture - Preliminary NO GROWTH IN 2 DAYS Resulted 01/22/17 19:15 Blood Peripheral Anaerobic Blood Culture - Preliminary NO GROWTH IN 2 DAYS Resulted Abdomen: Other (incision c/d/i. mercedes serous) A/P Assessment and Plan POD 3 Lap appy plan axr clears diet elizabeth supp oob pain control iv abx dvt ppx Timothy Avilez MD Jan 25, 2017 08:39
--- NOTE | 2017-01-25 08:50 | HHI.PR ---
Subjective Remarks Patient reports abdominal pain is worse after she walked. She was ambulating the halls. No nausea or vomiting. Objective Vitals Vital Signs Date Time Temp Pulse Resp B/P (MAP) Pulse Ox O2 Delivery O2 Flow Rate FiO2 01/25/17 04:00 98.0 82 16 118/70 (86) 100 01/25/17 00:00 99.0 77 17 92/50 (64) 98 01/24/17 22:00 20 01/24/17 20:00 97.9 89 16 99/54 (69) 99 01/24/17 16:00 97.7 88 16 102/52 (69) 99 01/24/17 12:40 98.9 75 16 110/67 (81) 100 I/O 01/24/17 01/24/17 01/24/17 01/25/17 01/25/17 01/25/17 07:00 15:00 23:00 07:00 15:00 23:00 Intake Total 3331 ml 152 ml 1780 ml 480 ml Output Total 588 ml 315 ml Balance 2743 ml 152 ml 1780 ml 165 ml Intake Oral 220 ml 1780 ml 480 ml IV Total 3111 ml 152 ml Output Urine Total 500 ml 300 ml Drainage Total 88 ml 15 ml # Voids 9 3 # Bowel Movements 0 Result Diagram: 01/25/1762601/25/17626 Objective Remarks GENERAL: Patient is in no acute distress CARDIOVASCULAR: Normal rate and regular rhythm without murmurs, gallops, or rubs. RESPIRATORY: Good respiratory efforts. Breath sounds equal and clear to auscultation bilaterally. GASTROINTESTINAL: Abdomen is distended, tender to palpation. Normal active bowel sounds. There is a drain in place. MUSCULOSKELETAL: Extremities without cyanosis, or edema. NEURO: Alert & Oriented x4 to person, place, time, situation. Moves all ext x4 PSYCH: Appropriate mood and affect. A/P Problem List: (1) Sepsis ICD Code: A41.9 - Sepsis, unspecified organism (2) Acute appendicitis ICD Code: K35.80 - Unspecified acute appendicitis (3) Leukocytosis ICD Code: D72.829 - Elevated white blood cell count, unspecified Status: Acute Assessment and Plan 41 y/o female with a history of bipolar presented to the ED with complaints of abdominal pain. Sepsis present on admission with symptoms of tachycardia and leukocytosis with findings of acute appendicitis. IV fluid hydration supportive care with blood cultures currently pending but with no growth to date; continue IV antibiotics, Zosyn.- Acute appendicitis, status post operative day #3 diagnostic laparoscopic appendectomy with general surgery Dr. Avilez with findings of chronic purulent drainage - On clear liquid diet and continued CHUY drain monitoring per general surgery and postoperative care. Encourage ambulation. Pain control. Continue oral pain medication to IV Dilaudid when necessary. Encourage activity. Diet per general surgery Leukocytosis, wbc 20.4 present on admission, sepsis due to appendicitis- resolved on antibiotics. Hypokalemia- replete Hypophosphatemia -supplement DVT prophylaxis: SCDs Problem Qualifiers (1) Leukocytosis: Qualified Codes: D72.829 - Elevated white blood cell count, unspecified Scooter Jarrett MD Jan 25, 2017 08:50
--- NOTE | 2017-01-25 10:03 | RADRPT ---
EXAM DATE/TIME: 01/25/2017 09:11 [facility] COMPARISON: CT ABDOMEN & PELVIS W CONTRAST, January 22, 2017, 15:10. INDICATIONS : Abdominal pain, distension MEDICAL HISTORY : Cardiovascular disease SURGICAL HISTORY : Tubal ligation. ENCOUNTER: Subsequent ACUITY: 4 - 6 days PAIN SCORE: 10/10 LOCATION: Bilateral abdomen FINDINGS: Supine view of the abdomen demonstrates air and stool within the large bowel with air identified with in minimally distended small bowel. There is amorphous calcifications overlying the right pelvis. The re is a catheter overlying the right pelvis. Osseous structures are unremarkable. CONCLUSION: Findings suggestive of ileus. Flor Toney MD on January 25, 2017 at 9:58 Board Certified Radiologist. This report was verified electronically.
[2017-01-25] MEDS: HYDROmorphone HCL PF 1 MG/ML VIAL IV PUSH PRN ×2 (12:44→21:22)
[2017-01-25 12:58] VITALS: BP 134/84; PULSE 84; RESP 20; TEMP 99.1; O2SAT 98
--- NOTE | 2017-01-25 16:37 | HHI.PR ---
LINE MAINTAINER Note Note Subjective No acute events overnight. Afebrile, vital signs within normal limits and stable. Patient endorsing persistent abdominal pain and cramping, and a tense belly. Denies dysuria, constipation, diarrhea. Vital Signs Date Time Temp Pulse Resp B/P (MAP) Pulse Ox O2 Delivery O2 Flow Rate FiO2 01/25/17 12:58 99.1 84 20 134/84 (101) 98 01/24/17 08:23 21 01/23/17 00:36 Nasal Cannula 01/22/17 19:26 2.00 Objective General: Well-developed well-nourished adult black female resting in bed appearing uncomfortable but in no acute distress Lungs: Clear to auscultation bilaterally, no crackles wheezes CV: Normal rate, regular rhythm, normal S1/S2, no murmur Abdomen: Soft, moderately distended, tender to palpation in right lower and left lower quadrants. No rebound, mild voluntary guarding. MSK: No cyanosis or edema Last Impressions Abdomen X-Ray 01/25/17 0000 Signed Impressions: Service Date/Time: Wednesday, January 25, 2017 09:11 - CONCLUSION: Findings suggestive of ileus. Flor Toney MD Abdomen/Pelvis/Transvag US 01/22/17 1700 Signed Impressions: Service Date/Time: Sunday, January 22, 2017 17:26 - CONCLUSION: 1. No acute BOTTOM SCRUBBER abnormality is convincingly demonstrated. A few small bilateral ovarian cysts are noted but no evidence of torsion or definite PID. 2. I have reviewed the CT and I don't convincingly see a normal appendix. There is a looped structure medial to the cecum with wall thickening; I'm not convinced its the ileum and acute appendicitis is definitely possible in the proper clinical setting, especially since I don't see a definite acute BOTTOM SCRUBBER abnormality. Findings were discussed with Bola Bird P.A.-C. Steve Kerr MD Abdomen/Pelvis CT 01/22/17 1310 Signed Impressions: Service Date/Time: Sunday, January 22, 2017 15:10 - CONCLUSION: Cystic mass right adnexal region. Trace fluid in the right pelvis. I do not see inflammatory changes. Scattered radiopacities throughout the colon. Saman Dudley MD FACR Assessment and plan Patient is a 41 y/o who is POD # 3 s/p appendectomy who presents with PID. Vanc 750 mg 1x 01/23. Currently receiving Zosyn Day #3. Ovarian abscess unlikely based on unremarkable pelvic and speculum exam. G/C serology is negative. Pelvis appears normal on ultrasound, no evidence of TOA. BOTTOM SCRUBBER to sign off. Reconsult if needed. Thank you for the opportunity to care for Ms. Sanchez. Anuj Jett MD R2 Jan 25, 2017 16:37
[2017-01-25 16:38] VITALS: BP 113/79; PULSE 76; RESP 20; TEMP 97.9; O2SAT 100
[2017-01-25 20:00] VITALS: BP 137/77; PULSE 82; RESP 18; TEMP 98.2; O2SAT 100
[2017-01-26] VITALS: BP 109/72; PULSE 74; RESP 17; TEMP 97.6; O2SAT 100
[2017-01-26] MEDS: oxyCODONE/ACETAMINOPHEN 10 MG/325 MG TAB PO PRN ×4 (01:16→23:42)
[2017-01-26] MEDS: PIPERACIL-TAZO 4.5 GM PREMIX 100 ML IV SCH ×4 (01:30→19:43)
[2017-01-26 04:00] VITALS: BP 120/94; PULSE 81; RESP 17; TEMP 98.6; O2SAT 100
[2017-01-26] MEDS: HYDROmorphone HCL PF 1 MG/ML VIAL IV PUSH PRN ×2 (04:46→19:45)
[2017-01-26] MEDS: ONDANSETRON HCL 4 MG/2 ML VIAL IVP PRN (04:48)
[2017-01-26 07:50] VITALS: BP 123/83; PULSE 70; RESP 20; TEMP 96.5; O2SAT 98
[2017-01-26] MEDS: DOCUSATE SODIUM 50 MG/SENNA 8.6 MG TAB PO SCH (08:08)
[2017-01-26] MEDS: PANTOPRAZOLE SOD 40 MG DELAYED RELEASE TAB PO SCH (08:08)
[2017-01-26] MEDS: SODIUM CHLORIDE 0.9% FLUSH 10 ML FLUSH IV FLUSH SCH ×2 (08:09→19:46)
[2017-01-26 09:51] LABS: HEMATOCRIT 35.5 % (35.0-46.0); MEAN CELL VOLUME 93.9 FL (80.0-100.0); MEAN CORPUSCULAR HEMOGLOBIN 31.8 PG (27.0-34.0); MEAN CORPUSCULAR HGB CONC 33.9 % (32.0-36.0); PLATELET COUNT 257 TH/MM3 (150-450); RED BLOOD COUNT 3.78 MIL/MM3 (4.00-5.30); RED CELL DISTRIBUTION WIDTH 13.2 % (11.6-17.2); REVIEW FLAG FINAL; WHITE BLOOD COUNT 10.1 TH/MM3 (4.0-11.0)
[2017-01-26 10:20] LABS: BICARBONATE 26.6 MEQ/L (21.0-32.0); POTASSIUM 3.4 MEQ/L (3.5-5.1)
--- NOTE | 2017-01-26 10:27 | HHI.PR ---
Subjective Remarks NGT inserted yesterday due to persistent vomiting. It is draining bile. Patient reports she had some liquid stool today. Objective Vitals Vital Signs Date Time Temp Pulse Resp B/P (MAP) Pulse Ox O2 Delivery O2 Flow Rate FiO2 01/26/17 07:50 96.5 70 20 123/83 (96) 98 01/26/17 06:39 20 01/26/17 04:00 98.6 81 17 120/94 (103) 100 01/26/17 02:24 18 01/26/17 00:00 97.6 74 17 109/72 (84) 100 01/25/17 20:00 98.2 82 18 137/77 (97) 100 01/25/17 16:38 97.9 76 20 113/79 (90) 100 01/25/17 12:58 99.1 84 20 134/84 (101) 98 I/O 01/25/17 01/25/17 01/25/17 01/26/17 01/26/17 01/26/17 07:00 15:00 23:00 07:00 15:00 23:00 Intake Total 480 ml 930 ml 1175 ml Output Total 315 ml 1958 ml Balance 165 ml 930 ml -783 ml Intake Oral 480 ml 480 ml IV Total 450 ml 1175 ml Output Urine Total 300 ml Gastric Drainage Total 1950 ml Drainage Total 15 ml 8 ml # Voids 3 1 1 # Bowel Movements 1 Result Diagram: 01/26/17 0900 01/26/17 0900 Objective Remarks GENERAL: Patient is in no acute distress CARDIOVASCULAR: Normal rate and regular rhythm without murmurs, gallops, or rubs. RESPIRATORY: Good respiratory efforts. Breath sounds equal and clear to auscultation bilaterally. GASTROINTESTINAL: Abdomen is distended, tender to palpation. Normal active bowel sounds. There is a drain in place. MUSCULOSKELETAL: Extremities without cyanosis, or edema. NEURO: Alert & Oriented x4 to person, place, time, situation. Moves all ext x4 PSYCH: Appropriate mood and affect. A/P Problem List: (1) Sepsis ICD Code: A41.9 - Sepsis, unspecified organism (2) Acute appendicitis ICD Code: K35.80 - Unspecified acute appendicitis (3) Leukocytosis ICD Code: D72.829 - Elevated white blood cell count, unspecified Status: Acute Assessment and Plan 41 y/o female with a history of bipolar presented to the ED with complaints of abdominal pain. Sepsis present on admission with symptoms of tachycardia and leukocytosis with findings of acute appendicitis. IV fluid hydration supportive care with blood cultures currently pending but with no growth to date; continue IV antibiotics, Zosyn.- Acute appendicitis, status post operative day #4 diagnostic laparoscopic appendectomy with general surgery Dr. Avilez with findings of chronic purulent drainage - Continued CHUY drain monitoring per general surgery and postoperative care. Encourage ambulation. Pain control. Continue oral pain medication to IV Dilaudid when necessary. Ileus. NGT in place draining bile. Further plans per surgery. Leukocytosis, wbc 20.4 present on admission, sepsis due to appendicitis- resolved on antibiotics. Hypokalemia- replete Hypophosphatemia -supplement DVT prophylaxis: SCDs Problem Qualifiers (1) Leukocytosis: Qualified Codes: D72.829 - Elevated white blood cell count, unspecified Scooter Jarrett MD Jan 26, 2017 10:27
[2017-01-26] MEDS ORDERED: POTASSIUM CHLOR 20 MEQ PREMIX 100 ML IV ONE (10:30)
[2017-01-26 11:30] VITALS: BP 117/67; PULSE 82; RESP 20; TEMP 97.5; O2SAT 96
--- NOTE | 2017-01-26 12:49 | HHI.PR ---
Subjective Subjective Notes No pain Small amount flatus and little loose stool. Objective Vitals/I&O Vital Signs Date Time Temp Pulse Resp B/P (MAP) Pulse Ox O2 Delivery O2 Flow Rate FiO2 01/26/17 11:30 97.5 82 20 117/67 (84) 96 01/24/17 08:23 21 01/23/17 00:36 Nasal Cannula 01/22/17 19:26 2.00 Labs Laboratory Tests Test 01/26/17 09:00 White Blood Count 10.1 Red Blood Count 3.78 Hemoglobin 12.0 Hematocrit 35.5 Mean Corpuscular Volume 93.9 Mean Corpuscular Hemoglobin 31.8 Mean Corpuscular Hemoglobin Concent 33.9 Red Cell Distribution Width 13.2 Platelet Count 257 Mean Platelet Volume 9.1 Blood Urea Nitrogen 2 Creatinine 0.70 Random Glucose 104 Calcium Level 9.1 Sodium Level 137 Potassium Level 3.4 Chloride Level 102 Carbon Dioxide Level 26.6 Anion Gap 8 Estimat Glomerular Filtration Rate 112 Date/Time Source Procedure Growth Status 01/22/17 19:15 Blood Peripheral Aerobic Blood Culture - Preliminary NO GROWTH IN 4 DAYS Resulted 01/22/17 19:15 Blood Peripheral Anaerobic Blood Culture - Preliminary NO GROWTH IN 4 DAYS Resulted Abdomen: Other (moderately distended) Narrative Exam Steristrips dry and intact Patient wearing binder for comfort Drain output minimal A/P Problem List: (1) Ileus, postoperative ICD Codes: K91.89 - Other postprocedural complications and disorders of digestive system; K56.7 - Ileus, unspecified (2) Acute appendicitis ICD Codes: K35.80 - Unspecified acute appendicitis (3) Leukocytosis ICD Codes: D72.829 - Elevated white blood cell count, unspecified Status: Acute (4) Sepsis ICD Codes: A41.9 - Sepsis, unspecified organism Assessment and Plan Assessment: POD #4 Lap appendectomy for gangrenous appendicitis with purulence Now with ileus; 1950 ml NG output last 24 hrs; not broken down by shift Plan: Await return of bowel function before removing NG and starting diet. Continue IV antibiotics. Problem Qualifiers (1) Leukocytosis: Qualified Codes: D72.829 - Elevated white blood cell count, unspecified Blayne Alexander MD Jan 26, 2017 12:49
[2017-01-26] MEDS: D5-1/2 NS + KCL 20 MEQ INJ 1,000 ML IV SCH ×3 (14:14→21:34)
[2017-01-26 15:50] VITALS: BP 135/85; PULSE 80; RESP 20; TEMP 98.2; O2SAT 99
[2017-01-26 20:00] VITALS: BP 120/71; PULSE 75; RESP 17; TEMP 98.3; O2SAT 98
[2017-01-27] VITALS: BP 116/72; PULSE 72; RESP 16; TEMP 96.6; O2SAT 98
[2017-01-27] MEDS: PIPERACIL-TAZO 4.5 GM PREMIX 100 ML IV SCH ×4 (02:29→20:12)
[2017-01-27] MEDS: D5-1/2 NS + KCL 20 MEQ INJ 1,000 ML IV SCH ×2 (02:33→16:47)
[2017-01-27 04:00] VITALS: BP 118/71; PULSE 78; RESP 17; TEMP 98.3; O2SAT 98
[2017-01-27] MEDS: oxyCODONE/ACETAMINOPHEN 10 MG/325 MG TAB PO PRN ×3 (05:05→17:04)
[2017-01-27] MEDS: HYDROmorphone HCL PF 1 MG/ML VIAL IV PUSH PRN ×4 (07:26→22:17)
[2017-01-27] MEDS: SODIUM CHLORIDE 0.9% FLUSH 10 ML FLUSH IV FLUSH PRN ×2 (07:26→22:17)
[2017-01-27] MEDS: PANTOPRAZOLE SOD 40 MG DELAYED RELEASE TAB PO SCH (07:50)
[2017-01-27] MEDS: SODIUM CHLORIDE 0.9% FLUSH 10 ML FLUSH IV FLUSH SCH ×2 (07:50→20:12)
[2017-01-27] MEDS: DOCUSATE SODIUM 50 MG/SENNA 8.6 MG TAB PO SCH (07:50)
[2017-01-27 08:00] VITALS: BP 117/70; PULSE 71; RESP 20; TEMP 96.7; O2SAT 98
--- NOTE | 2017-01-27 09:58 | HHI.PR ---
Subjective Remarks Feeling better, passing gas. NGT output decreased. Advanced to clear liquids. Objective Vitals Vital Signs Date Time Temp Pulse Resp B/P (MAP) Pulse Ox O2 Delivery O2 Flow Rate FiO2 01/27/17 08:00 96.7 71 20 117/70 (86) 98 01/27/17 04:00 98.3 78 17 118/71 (87) 98 01/27/17 00:00 96.6 72 16 116/72 (87) 98 01/26/17 20:00 98.3 75 17 120/71 (87) 98 01/26/17 15:50 98.2 80 20 135/85 (102) 99 01/26/17 11:30 97.5 82 20 117/67 (84) 96 I/O 01/26/17 01/26/17 01/26/17 01/27/17 01/27/17 01/27/17 07:00 15:00 23:00 07:00 15:00 23:00 Intake Total 1175 ml 200 ml 1925 ml 1500 ml Output Total 1958 ml 901 ml 900 ml 805 ml Balance -783 ml -701 ml 1025 ml 695 ml Intake Oral 1720 ml 500 ml IV Total 1175 ml 200 ml 205 ml 1000 ml Gastric Drainage Total 1950 ml 900 ml 900 ml 800 ml Drainage Total 8 ml 1 ml 5 ml # Voids 1 5 # Bowel Movements 1 1 Result Diagram: 01/26/17 0900 01/26/17 0900 Objective Remarks GENERAL: Patient is in no acute distress CARDIOVASCULAR: Normal rate and regular rhythm without murmurs, gallops, or rubs. RESPIRATORY: Good respiratory efforts. Breath sounds equal and clear to auscultation bilaterally. GASTROINTESTINAL: Abdomen is less distended, non tender to palpation. Normal active bowel sounds. MUSCULOSKELETAL: Extremities without cyanosis, or edema. NEURO: Alert & Oriented x4 to person, place, time, situation. Moves all ext x4 PSYCH: Appropriate mood and affect. A/P Problem List: (1) Sepsis ICD Code: A41.9 - Sepsis, unspecified organism (2) Acute appendicitis ICD Code: K35.80 - Unspecified acute appendicitis (3) Leukocytosis ICD Code: D72.829 - Elevated white blood cell count, unspecified Status: Acute Assessment and Plan 41 y/o female with a history of bipolar presented to the ED with complaints of abdominal pain. Sepsis present on admission with symptoms of tachycardia and leukocytosis with findings of acute appendicitis. IV fluid hydration supportive care with blood cultures currently pending but with no growth to date; continue IV antibiotics, Zosyn.- Acute appendicitis, status post operative day #5 diagnostic laparoscopic appendectomy with general surgery Dr. Avilez with findings of chronic purulent drainage - Continued CHUY drain monitoring per general surgery and postoperative care. Encourage ambulation. Pain control. Continue oral pain medication to IV Dilaudid when necessary. Ileus. Improving. NGT to be capped this AM. DW nursing. Clear liquid diet. Leukocytosis, wbc 20.4 present on admission, sepsis due to appendicitis- resolved on antibiotics. Hypokalemia- replete Hypophosphatemia -supplement DVT prophylaxis: SCDs Problem Qualifiers (1) Leukocytosis: Qualified Codes: D72.829 - Elevated white blood cell count, unspecified Scooter Jarrett MD Jan 27, 2017 09:58
[2017-01-27 10:11] LABS: MEAN CELL VOLUME 92.4 FL (80.0-100.0); MEAN CORPUSCULAR HEMOGLOBIN 31.1 PG (27.0-34.0); MEAN CORPUSCULAR HGB CONC 33.6 % (32.0-36.0); PLATELET COUNT 271 TH/MM3 (150-450); RED BLOOD COUNT 3.57 MIL/MM3 (4.00-5.30); REVIEW FLAG FINAL; WHITE BLOOD COUNT 6.8 TH/MM3 (4.0-11.0)
[2017-01-27 10:24] LABS: BICARBONATE 26.9 MEQ/L (21.0-32.0); POTASSIUM 3.8 MEQ/L (3.5-5.1)
[2017-01-27] MEDS ORDERED: PHENOL 1.4% SOLN 180 ML BTL OROPHARYNG PRN (10:30)
[2017-01-27 12:00] VITALS: BP 126/71; PULSE 73; RESP 20; TEMP 98.6; O2SAT 99
--- NOTE | 2017-01-27 12:20 | HHI.PR ---
Subjective Subjective Notes Resting in bed C/o sore throat Objective Vitals/I&O Vital Signs Date Time Temp Pulse Resp B/P (MAP) Pulse Ox O2 Delivery O2 Flow Rate FiO2 01/27/17 08:00 96.7 71 20 117/70 (86) 98 01/24/17 08:23 21 Labs Laboratory Tests Test 01/27/17 09:24 White Blood Count 6.8 Red Blood Count 3.57 Hemoglobin 11.1 Hematocrit 33.0 Mean Corpuscular Volume 92.4 Mean Corpuscular Hemoglobin 31.1 Mean Corpuscular Hemoglobin Concent 33.6 Red Cell Distribution Width 13.0 Platelet Count 271 Mean Platelet Volume 8.6 Blood Urea Nitrogen 2 Creatinine 0.68 Random Glucose 111 Calcium Level 8.9 Sodium Level 139 Potassium Level 3.8 Chloride Level 105 Carbon Dioxide Level 26.9 Anion Gap 7 Estimat Glomerular Filtration Rate 116 Date/Time Source Procedure Growth Status 01/22/17 19:15 Blood Peripheral Aerobic Blood Culture - Final NO GROWTH IN 5 DAYS Complete 01/22/17 19:15 Blood Peripheral Anaerobic Blood Culture - Final NO GROWTH IN 5 DAYS Complete Cardiovascular: Regular Lungs: Clear Abdomen: Other (lap sites c/d/i; CHUY with serous fluid; abdomen distended; minimally tender ) Extremities: No edema Narrative Exam NGT in place A/P Problem List: (1) Ileus, postoperative ICD Codes: K91.89 - Other postprocedural complications and disorders of digestive system; K56.7 - Ileus, unspecified (2) Acute appendicitis ICD Codes: K35.80 - Unspecified acute appendicitis (3) Leukocytosis ICD Codes: D72.829 - Elevated white blood cell count, unspecified Status: Acute (4) Sepsis ICD Codes: A41.9 - Sepsis, unspecified organism Assessment and Plan 41 year old female POD5 lap appy; gangrenous; post op ileus -Okay to continue clear liquids -NGT to LIWS; okay to be clamped to ambulate and shower -OOB and mobilize -Pain control -Continue IVF fluids -Continue antibiotics Attending Statement patient seen at bedside post op ileus improving ok to clamp ng for ambulation Attestation The exam, history, and the medical decision-making described in the above note were completed with the assistance of the mid-level provider. I reviewed and agree with the findings presented. I attest that I had a [id number] encounter with the patient on the same day, and personally performed and documented my assessment and findings in the medical record. Problem Qualifiers (1) Leukocytosis: Qualified Codes: D72.829 - Elevated white blood cell count, unspecified Keira Glass Jan 27, 2017 12:20 Timothy Avilez MD Jan 31, 2017 15:32
[2017-01-27 16:00] VITALS: BP 118/73; PULSE 71; RESP 20; TEMP 97.5; O2SAT 98
[2017-01-27 20:00] VITALS: BP 119/74; PULSE 65; RESP 17; TEMP 97.2; O2SAT 97
[2017-01-27] MEDS: ONDANSETRON HCL 4 MG/2 ML VIAL IVP PRN (22:19)
[2017-01-28] VITALS: BP 109/64; PULSE 69; RESP 17; TEMP 97.9; O2SAT 97
[2017-01-28] MEDS: oxyCODONE/ACETAMINOPHEN 10 MG/325 MG TAB PO PRN ×3 (01:53→16:08)
[2017-01-28] MEDS: PIPERACIL-TAZO 4.5 GM PREMIX 100 ML IV SCH ×4 (01:54→20:05)
[2017-01-28] MEDS: D5-1/2 NS + KCL 20 MEQ INJ 1,000 ML IV SCH ×3 (01:55→20:10)
[2017-01-28 04:00] VITALS: BP_SYST 119; BP_SYST 147; BP_DIAS 67; BP_DIAS 73; PULSE 67; PULSE 93; RESP 17; TEMP 97.9; TEMP 98.1; O2SAT 92; O2SAT 98
[2017-01-28] MEDS: SODIUM CHLORIDE 0.9% FLUSH 10 ML FLUSH IV FLUSH PRN (04:53)
[2017-01-28] MEDS: HYDROmorphone HCL PF 1 MG/ML VIAL IV PUSH PRN ×3 (04:53→20:05)
[2017-01-28 07:53] LABS: HEMATOCRIT 33.3 % (35.0-46.0); MEAN CELL VOLUME 92.8 FL (80.0-100.0); MEAN CORPUSCULAR HEMOGLOBIN 31.8 PG (27.0-34.0); MEAN CORPUSCULAR HGB CONC 34.2 % (32.0-36.0); PLATELET COUNT 299 TH/MM3 (150-450); RED BLOOD COUNT 3.59 MIL/MM3 (4.00-5.30); RED CELL DISTRIBUTION WIDTH 13.2 % (11.6-17.2); REVIEW FLAG FINAL; WHITE BLOOD COUNT 8.3 TH/MM3 (4.0-11.0)
[2017-01-28 08:20] LABS: BICARBONATE 27.6 MEQ/L (21.0-32.0); POTASSIUM 3.9 MEQ/L (3.5-5.1)
[2017-01-28] MEDS: SODIUM CHLORIDE 0.9% FLUSH 10 ML FLUSH IV FLUSH SCH ×2 (08:34→20:05)
[2017-01-28] MEDS: PANTOPRAZOLE SOD 40 MG DELAYED RELEASE TAB PO SCH (08:34)
[2017-01-28] MEDS: DOCUSATE SODIUM 50 MG/SENNA 8.6 MG TAB PO SCH (08:34)
[2017-01-28 08:50] VITALS: BP 145/75; PULSE 71; RESP 16; TEMP 97.3; O2SAT 100
--- NOTE | 2017-01-28 09:29 | HHI.PR ---
Subjective Subjective Notes bm yesterday, still with pain and bloating, occasional burping Objective Vitals/I&O Vital Signs Date Time Temp Pulse Resp B/P (MAP) Pulse Ox O2 Delivery O2 Flow Rate FiO2 01/28/17 08:50 97.3 71 16 145/75 (98) 100 01/24/17 08:23 21 Labs Laboratory Tests Test 01/28/17 07:34 White Blood Count 8.3 Red Blood Count 3.59 Hemoglobin 11.4 Hematocrit 33.3 Mean Corpuscular Volume 92.8 Mean Corpuscular Hemoglobin 31.8 Mean Corpuscular Hemoglobin Concent 34.2 Red Cell Distribution Width 13.2 Platelet Count 299 Mean Platelet Volume 8.2 Blood Urea Nitrogen 2 Creatinine 0.78 Random Glucose 118 Calcium Level 9.3 Sodium Level 136 Potassium Level 3.9 Chloride Level 102 Carbon Dioxide Level 27.6 Anion Gap 6 Estimat Glomerular Filtration Rate 99 Date/Time Source Procedure Growth Status 01/22/17 19:15 Blood Peripheral Aerobic Blood Culture - Final NO GROWTH IN 5 DAYS Complete 01/22/17 19:15 Blood Peripheral Anaerobic Blood Culture - Final NO GROWTH IN 5 DAYS Complete Abdomen: Other (mild distension, mercedes serous) A/P Problem List: (1) Ileus, postoperative ICD Codes: K91.89 - Other postprocedural complications and disorders of digestive system; K56.7 - Ileus, unspecified (2) Acute appendicitis ICD Codes: K35.80 - Unspecified acute appendicitis (3) Leukocytosis ICD Codes: D72.829 - Elevated white blood cell count, unspecified Status: Acute (4) Sepsis ICD Codes: A41.9 - Sepsis, unspecified organism Assessment and Plan POD 6 Lap appy, ileus plan axr today clears diet clamp ng tube encourage oob mercedes sxn dvt ppx Problem Qualifiers (1) Leukocytosis: Qualified Codes: D72.829 - Elevated white blood cell count, unspecified Timothy Avilez MD Jan 28, 2017 09:29
--- NOTE | 2017-01-28 10:37 | HHI.PR ---
Subjective Remarks Patient reports she is feeling okay today. No nausea or vomiting. NG tube is clamped. Tolerating a liquid diet. Objective Vitals Vital Signs Date Time Temp Pulse Resp B/P (MAP) Pulse Ox O2 Delivery O2 Flow Rate FiO2 01/28/17 08:50 97.3 71 16 145/75 (98) 100 01/28/17 04:00 97.9 67 17 119/73 (88) 98 01/28/17 00:00 97.9 69 17 109/64 (79) 97 01/27/17 20:00 97.2 65 17 119/74 (89) 97 01/27/17 16:00 97.5 71 20 118/73 (88) 98 01/27/17 12:00 98.6 73 20 126/71 (89) 99 I/O 01/27/17 01/27/17 01/27/17 01/28/17 01/28/17 01/28/17 07:00 15:00 23:00 07:00 15:00 23:00 Intake Total 1500 ml 1100 ml 2094 ml 600 ml Output Total 805 ml 251 ml 378 ml Balance 695 ml 1100 ml 1843 ml 222 ml Intake Oral 500 ml 1994 ml 600 ml IV Total 1000 ml 1100 ml 100 ml Output Urine Total 300 ml Gastric Drainage Total 800 ml 250 ml 75 ml Drainage Total 5 ml 1 ml 3 ml # Voids 9 1 # Bowel Movements 1 Result Diagram: 01/28/17 0734 01/28/17 0734 Objective Remarks GENERAL: Patient is in no acute distress CARDIOVASCULAR: Normal rate and regular rhythm without murmurs, gallops, or rubs. RESPIRATORY: Good respiratory efforts. Breath sounds equal and clear to auscultation bilaterally. GASTROINTESTINAL: Abdomen is less distended, non tender to palpation. Hypoactive bowel sounds. MUSCULOSKELETAL: Extremities without cyanosis, or edema. NEURO: Alert & Oriented x4 to person, place, time, situation. Moves all ext x4 PSYCH: Appropriate mood and affect. A/P Problem List: (1) Sepsis ICD Code: A41.9 - Sepsis, unspecified organism (2) Acute appendicitis ICD Code: K35.80 - Unspecified acute appendicitis (3) Leukocytosis ICD Code: D72.829 - Elevated white blood cell count, unspecified Status: Acute Assessment and Plan 41 y/o female with a history of bipolar presented to the ED with complaints of abdominal pain. Sepsis present on admission with symptoms of tachycardia and leukocytosis with findings of acute appendicitis. IV fluid hydration supportive care with blood cultures currently pending but with no growth to date; continue IV antibiotics, Zosyn.- Acute appendicitis, status post operative day #5 diagnostic laparoscopic appendectomy with general surgery Dr. Avilez with findings of chronic purulent drainage -postoperative care per general surgery. Encourage ambulation. Pain control. Continue oral pain medication to IV Dilaudid when necessary. Ileus. Stable. NGT clamped. Clear liquid diet. Leukocytosis, wbc 20.4 present on admission, sepsis due to appendicitis- resolved on antibiotics. Hypokalemia- replete Hypophosphatemia -supplement DVT prophylaxis: SCDs Problem Qualifiers (1) Leukocytosis: Qualified Codes: D72.829 - Elevated white blood cell count, unspecified Scooter Jarrett MD Jan 28, 2017 10:37
--- NOTE | 2017-01-28 11:59 | RADRPT ---
EXAM DATE/TIME: 01/28/2017 10:58 [facility] COMPARISON: ABDOMEN KUB ONLY, January 25, 2017, 9:11. INDICATIONS : Post op Ileus. MEDICAL HISTORY : Cardiovascular disease. SURGICAL HISTORY : Tubal ligation. ENCOUNTER: Subsequent ACUITY: 1 week PAIN SCORE: 5/10 LOCATION: Bilateral Abdomen. FINDINGS: Section type nasogastric catheter with tip in the proximal third portion the duodenum. Air is seen th roughout the colon. The slightly improved loops of air-filled mildly distended small bowel. Right low er quadrant surgical drain in place. Remainder of exam is unchanged. CONCLUSION: 1. Suction type nasogastric catheter tip in the proximal third portion of the duodenum. Consider retr acting the catheter approximately 15 cm to withdraw back into the stomach if intended gastric positio jerry. 2. Findings consistent with stable adynamic ileus. Theodore Blake MD on January 28, 2017 at 11:55 Board Certified Radiologist. This report was verified electronically.
[2017-01-28 12:00] VITALS: BP 125/80; PULSE 73; RESP 16; TEMP 98; O2SAT 98
[2017-01-28 16:00] VITALS: BP 125/86; PULSE 70; RESP 16; TEMP 97.2; O2SAT 98
[2017-01-28 20:00] VITALS: BP 125/68; PULSE 70; RESP 18; TEMP 98.2; O2SAT 98
[2017-01-29] VITALS: BP 121/83; PULSE 70; RESP 17; TEMP 99.5; O2SAT 98
[2017-01-29] MEDS: oxyCODONE/ACETAMINOPHEN 10 MG/325 MG TAB PO PRN ×3 (00:58→17:56)
[2017-01-29] MEDS: PIPERACIL-TAZO 4.5 GM PREMIX 100 ML IV SCH ×4 (02:41→21:07)
[2017-01-29 04:00] VITALS: BP 111/57; PULSE 77; RESP 16; TEMP 98.2; O2SAT 93
[2017-01-29] MEDS: D5-1/2 NS + KCL 20 MEQ INJ 1,000 ML IV SCH ×2 (07:38→21:07)
[2017-01-29 07:50] VITALS: BP 119/63; PULSE 70; RESP 20; TEMP 97.9; O2SAT 98
[2017-01-29 08:01] LABS: HEMATOCRIT 35.2 % (35.0-46.0); MEAN CELL VOLUME 92.8 FL (80.0-100.0); MEAN CORPUSCULAR HEMOGLOBIN 31.4 PG (27.0-34.0); MEAN CORPUSCULAR HGB CONC 33.9 % (32.0-36.0); PLATELET COUNT 335 TH/MM3 (150-450); RED BLOOD COUNT 3.79 MIL/MM3 (4.00-5.30); RED CELL DISTRIBUTION WIDTH 13.4 % (11.6-17.2); REVIEW FLAG FINAL; WHITE BLOOD COUNT 8.3 TH/MM3 (4.0-11.0)
[2017-01-29] MEDS: DOCUSATE SODIUM 50 MG/SENNA 8.6 MG TAB PO SCH (08:20)
[2017-01-29] MEDS: PANTOPRAZOLE SOD 40 MG DELAYED RELEASE TAB PO SCH (08:20)
[2017-01-29] MEDS: SODIUM CHLORIDE 0.9% FLUSH 10 ML FLUSH IV FLUSH SCH ×2 (08:21→21:00)
[2017-01-29 08:31] LABS: BICARBONATE 28.2 MEQ/L (21.0-32.0); POTASSIUM 4.5 MEQ/L (3.5-5.1)
--- NOTE | 2017-01-29 09:48 | HHI.PR ---
Subjective Remarks Patient reports feeling better. Wants to eat more. No nausea or vomiting. NGT is out. Objective Vitals Vital Signs Date Time Temp Pulse Resp B/P (MAP) Pulse Ox O2 Delivery O2 Flow Rate FiO2 01/29/17 04:00 98.2 77 16 111/57 (75) 93 01/29/17 00:00 99.5 70 17 121/83 (96) 98 01/28/17 20:00 98.2 70 18 125/68 (87) 98 01/28/17 16:00 97.2 70 16 125/86 (99) 98 01/28/17 12:00 98.0 73 16 125/80 (95) 98 I/O 01/28/17 01/28/17 01/28/17 01/29/17 01/29/17 01/29/17 07:00 15:00 23:00 07:00 15:00 23:00 Intake Total 600 ml 100 ml 1860 ml Output Total 378 ml 500 ml 5 ml Balance 222 ml 100 ml 1360 ml -5 ml Intake Oral 600 ml 760 ml IV Total 100 ml 1100 ml Output Urine Total 300 ml 500 ml Gastric Drainage Total 75 ml Drainage Total 3 ml 5 ml # Voids 1 4 5 Result Diagram: 01/29/1771601/29/17716 Objective Remarks GENERAL: Patient is in no acute distress CARDIOVASCULAR: Normal rate and regular rhythm without murmurs, gallops, or rubs. RESPIRATORY: Good respiratory efforts. Breath sounds equal and clear to auscultation bilaterally. GASTROINTESTINAL: Abdomen is less distended, non tender to palpation. Hypoactive bowel sounds. MUSCULOSKELETAL: Extremities without cyanosis, or edema. NEURO: Alert & Oriented x4 to person, place, time, situation. Moves all ext x4 PSYCH: Appropriate mood and affect. A/P Problem List: (1) Sepsis ICD Code: A41.9 - Sepsis, unspecified organism (2) Acute appendicitis ICD Code: K35.80 - Unspecified acute appendicitis (3) Leukocytosis ICD Code: D72.829 - Elevated white blood cell count, unspecified Status: Acute Assessment and Plan 41 y/o female with a history of bipolar presented to the ED with complaints of abdominal pain. Sepsis present on admission with symptoms of tachycardia and leukocytosis with findings of acute appendicitis. IV fluid hydration supportive care with blood cultures currently pending but with no growth to date; continue IV antibiotics, Zosyn.- Acute appendicitis, status post operative day #6 diagnostic laparoscopic appendectomy with general surgery Dr. Avilez with findings of chronic purulent drainage -postoperative care per general surgery. Encourage ambulation. Pain control. Continue oral pain medication to IV Dilaudid when necessary. Ileus. Resolving. Advance to full liquid per general surgery. Leukocytosis, wbc 20.4 present on admission, sepsis due to appendicitis- resolved on antibiotics. DVT prophylaxis: SCDs Problem Qualifiers (1) Leukocytosis: Qualified Codes: D72.829 - Elevated white blood cell count, unspecified Scooter Jarrett MD Jan 29, 2017 09:48
[2017-01-29 11:50] VITALS: BP 111/81; PULSE 64; RESP 20; TEMP 98.1; O2SAT 98
[2017-01-29] MEDS ORDERED: MAGNESIUM HYDROXIDE SUSP 30 ML CUP PO ONE (13:30)
[2017-01-29 15:52] VITALS: BP 116/68; PULSE 75; RESP 20; TEMP 98.7; O2SAT 97
--- NOTE | 2017-01-29 16:03 | HHI.PR ---
Subjective Subjective Notes Up to chair Wants to try more to eat Objective Vitals/I&O Vital Signs Date Time Temp Pulse Resp B/P (MAP) Pulse Ox O2 Delivery O2 Flow Rate FiO2 01/29/17 15:52 98.7 75 20 116/68 (84) 97 Labs Laboratory Tests Test 01/29/17 07:17 White Blood Count 8.3 Red Blood Count 3.79 Hemoglobin 11.9 Hematocrit 35.2 Mean Corpuscular Volume 92.8 Mean Corpuscular Hemoglobin 31.4 Mean Corpuscular Hemoglobin Concent 33.9 Red Cell Distribution Width 13.4 Platelet Count 335 Mean Platelet Volume 8.4 Blood Urea Nitrogen 2 Creatinine 0.84 Random Glucose 101 Calcium Level 9.3 Sodium Level 138 Potassium Level 4.5 Chloride Level 104 Carbon Dioxide Level 28.2 Anion Gap 6 Estimat Glomerular Filtration Rate 91 Date/Time Source Procedure Growth Status 01/22/17 19:15 Blood Peripheral Aerobic Blood Culture - Final NO GROWTH IN 5 DAYS Complete 01/22/17 19:15 Blood Peripheral Anaerobic Blood Culture - Final NO GROWTH IN 5 DAYS Complete Cardiovascular: Regular Lungs: Clear Abdomen: Other (minimally distended; soft; lap sites c/d/i; CHUY with serous fluid ) Extremities: No edema Narrative Exam NGT out A/P Problem List: (1) Ileus, postoperative ICD Codes: K91.89 - Other postprocedural complications and disorders of digestive system; K56.7 - Ileus, unspecified (2) Acute appendicitis ICD Codes: K35.80 - Unspecified acute appendicitis (3) Leukocytosis ICD Codes: D72.829 - Elevated white blood cell count, unspecified Status: Acute (4) Sepsis ICD Codes: A41.9 - Sepsis, unspecified organism Assessment and Plan 41 year old female s/p lap appy; gangrenous; post op ileus -Okay to leave NGT out; replace if any nausea/vomiting -Advance to fulls -Bowel regimen -OOB and mobilize -Pain control -Continue IVF fluids -Continue antibiotics Attending Statement patient seen at bedside ng out ok for liquids pain better Attestation The exam, history, and the medical decision-making described in the above note were completed with the assistance of the mid-level provider. I reviewed and agree with the findings presented. I attest that I had a [id number] encounter with the patient on the same day, and personally performed and documented my assessment and findings in the medical record. Problem Qualifiers (1) Leukocytosis: Qualified Codes: D72.829 - Elevated white blood cell count, unspecified Keira Glass Jan 29, 2017 16:03 Timothy Avilez MD Feb 01, 2017 23:09
[2017-01-29 20:00] VITALS: BP 134/81; PULSE 70; RESP 17; TEMP 97.2; O2SAT 99
[2017-01-29] MEDS: HYDROmorphone HCL PF 1 MG/ML VIAL IV PUSH PRN (23:14)
[2017-01-30] VITALS: BP 154/75; PULSE 65; RESP 17; TEMP 97.6; O2SAT 98
[2017-01-30] MEDS: PIPERACIL-TAZO 4.5 GM PREMIX 100 ML IV SCH ×2 (02:08→08:09)
[2017-01-30] MEDS: oxyCODONE/ACETAMINOPHEN 10 MG/325 MG TAB PO PRN ×3 (02:09→19:57)
[2017-01-30 04:00] VITALS: BP 119/71; PULSE 66; RESP 17; TEMP 98.8; O2SAT 98
[2017-01-30] MEDS: D5-1/2 NS + KCL 20 MEQ INJ 1,000 ML IV SCH (06:15)
[2017-01-30] MEDS: HYDROmorphone HCL PF 1 MG/ML VIAL IV PUSH PRN ×2 (06:15→23:34)
[2017-01-30 07:30] VITALS: BP 130/58; PULSE 71; RESP 20; TEMP 97.1; O2SAT 99
[2017-01-30] MEDS: PANTOPRAZOLE SOD 40 MG DELAYED RELEASE TAB PO SCH (08:09)
[2017-01-30] MEDS: DOCUSATE SODIUM 50 MG/SENNA 8.6 MG TAB PO SCH (08:09)
[2017-01-30] MEDS: SODIUM CHLORIDE 0.9% FLUSH 10 ML FLUSH IV FLUSH SCH ×2 (08:10→19:57)
[2017-01-30] MEDS ORDERED: IBUPROFEN 600 MG TAB PO ONE (10:30)
--- NOTE | 2017-01-30 11:27 | HHI.PR ---
Subjective Subjective Notes Resting in bed Tolerating regular diet; small meals +BM overnight Objective Vitals/I&O Vital Signs Date Time Temp Pulse Resp B/P (MAP) Pulse Ox O2 Delivery O2 Flow Rate FiO2 01/30/17 07:30 97.1 71 20 130/58 (82) 99 Labs Date/Time Source Procedure Growth Status 01/22/17 19:15 Blood Peripheral Aerobic Blood Culture - Final NO GROWTH IN 5 DAYS Complete 01/22/17 19:15 Blood Peripheral Anaerobic Blood Culture - Final NO GROWTH IN 5 DAYS Complete Cardiovascular: Regular Lungs: Clear Abdomen: Other (lap sites c/d/i; MERCEDES with minimal serous drainage; mildly distended; minimally tender to palpation ) Extremities: No edema A/P Problem List: (1) Ileus, postoperative ICD Codes: K91.89 - Other postprocedural complications and disorders of digestive system; K56.7 - Ileus, unspecified (2) Acute appendicitis ICD Codes: K35.80 - Unspecified acute appendicitis (3) Leukocytosis ICD Codes: D72.829 - Elevated white blood cell count, unspecified Status: Acute (4) Sepsis ICD Codes: A41.9 - Sepsis, unspecified organism Assessment and Plan 41 year old female s/p lap appy; gangrenous; post op ileus -Tolerating regular diet -DC MERCEDES drain -DC Zosyn; transition to Augmentin -Bowel regimen -OOB and mobilize -Pain control -DC IVF -Likely home tomorrow if tolerating regular diet and pain controlled on PO pain pills Attending Statement patient seen at bedside ileus resolving pt doing well d/c tomorrow dc mercedes Attestation The exam, history, and the medical decision-making described in the above note were completed with the assistance of the mid-level provider. I reviewed and agree with the findings presented. I attest that I had a [id number] encounter with the patient on the same day, and personally performed and documented my assessment and findings in the medical record. Problem Qualifiers (1) Leukocytosis: Qualified Codes: D72.829 - Elevated white blood cell count, unspecified Keira Glass Jan 30, 2017 10:41 Timothy Avilez MD Feb 01, 2017 23:22
[2017-01-30 11:30] VITALS: BP 127/99; PULSE 70; RESP 20; TEMP 98.2; O2SAT 99
--- NOTE | 2017-01-30 12:27 | HHI.PR ---
Subjective Remarks Patient reports she is feeling better. Diet advanced to regular. Objective Vitals Vital Signs Date Time Temp Pulse Resp B/P (MAP) Pulse Ox O2 Delivery O2 Flow Rate FiO2 01/30/17 07:30 97.1 71 20 130/58 (82) 99 01/30/17 04:00 98.8 66 17 119/71 (87) 98 01/30/17 00:00 97.6 65 17 154/75 (101) 98 01/29/17 20:00 97.2 70 17 134/81 (98) 99 01/29/17 15:52 98.7 75 20 116/68 (84) 97 I/O 01/29/17 01/29/17 01/29/17 01/30/17 01/30/17 01/30/17 07:00 15:00 23:00 07:00 15:00 23:00 Intake Total 70 ml 1100 ml Output Total 5 ml 5 ml Balance -5 ml 70 ml -5 ml 1100 ml Intake Oral 70 ml IV Total 1100 ml Drainage Total 5 ml 5 ml # Voids 5 6 3 # Bowel Movements 1 1 Result Diagram: 01/29/17 0701/29/17716 Objective Remarks GENERAL: Patient is in no acute distress CARDIOVASCULAR: Normal rate and regular rhythm without murmurs, gallops, or rubs. RESPIRATORY: Good respiratory efforts. Breath sounds equal and clear to auscultation bilaterally. GASTROINTESTINAL: Abdomen is less distended, non tender to palpation. Hypoactive bowel sounds. Drain in place. MUSCULOSKELETAL: Extremities without cyanosis, or edema. NEURO: Alert & Oriented x4 to person, place, time, situation. Moves all ext x4 PSYCH: Appropriate mood and affect. A/P Problem List: (1) Sepsis ICD Code: A41.9 - Sepsis, unspecified organism (2) Acute appendicitis ICD Code: K35.80 - Unspecified acute appendicitis (3) Leukocytosis ICD Code: D72.829 - Elevated white blood cell count, unspecified Status: Acute Assessment and Plan 41 y/o female with a history of bipolar presented to the ED with complaints of abdominal pain. Sepsis present on admission with symptoms of tachycardia and leukocytosis with findings of acute appendicitis. IV fluid hydration supportive care with blood cultures currently pending but with no growth to date; continue IV antibiotics, Zosyn.- Acute appendicitis, status post operative day #6 diagnostic laparoscopic appendectomy with general surgery Dr. Avilez with findings of chronic purulent drainage -postoperative care per general surgery. Encourage ambulation. Pain control. Continue oral pain medication to IV Dilaudid when necessary. Drain to be discontinued today. Patient switched to Augmentin. Ileus. Resolving. Advance to regular per general surgery. Leukocytosis, wbc 20.4 present on admission, sepsis due to appendicitis- resolved on antibiotics. DVT prophylaxis: SCDs Discharge Planning Possible discharge tomorrow if she continues to improve when okay by surgery. Problem Qualifiers (1) Leukocytosis: Qualified Codes: D72.829 - Elevated white blood cell count, unspecified Scooter Jarrett MD Jan 30, 2017 12:27
[2017-01-30 15:30] VITALS: BP 123/68; PULSE 66; RESP 20; TEMP 97.3; O2SAT 97
[2017-01-30] MEDS: AMOXICILLIN/CLAVULANATE K 875 MG TAB PO SCH (19:57)
[2017-01-30 20:00] VITALS: BP 103/71; PULSE 82; RESP 17; TEMP 98.8; O2SAT 98
--- NOTE | 2017-01-30 20:21 | HHI.DCPOC ---
Discharge Care Plan Diagnosis: (1) Sepsis (2) Acute appendicitis (3) Ileus, postoperative (4) Abdominal pain Goals to Promote Your Health * To prevent worsening of your condition and complications * To maintain your health at the optimal level Directions to Meet Your Goals Take your medications as prescribed Follow your dietary instruction Follow activity as directed Keep your appointments as scheduled Take your immunizations and boosters as scheduled If your symptoms worsen call your PCP, if no PCP go to Urgent Care Center or Emergency Room Smoking is Dangerous to Your Health. Avoid second hand smoke Call the 24-hour hour crisis hotline for domestic abuse at Scooter Jarrett MD Jan 30, 2017 20:21
[2017-01-31] VITALS: BP 110/61; PULSE 84; RESP 17; TEMP 98.9; O2SAT 97
[2017-01-31] MEDS: oxyCODONE/ACETAMINOPHEN 10 MG/325 MG TAB PO PRN ×2 (02:32→08:46)
[2017-01-31 04:00] VITALS: BP 114/65; PULSE 21; RESP 17; TEMP 98.9; O2SAT 96
[2017-01-31] MEDS: HYDROmorphone HCL PF 1 MG/ML VIAL IV PUSH PRN (06:24)
[2017-01-31 08:00] VITALS: BP 121/69; PULSE 86; RESP 14; TEMP 99.6; O2SAT 98
[2017-01-31] MEDS: DOCUSATE SODIUM 50 MG/SENNA 8.6 MG TAB PO SCH (08:46)
[2017-01-31] MEDS: PANTOPRAZOLE SOD 40 MG DELAYED RELEASE TAB PO SCH (08:46)
[2017-01-31] MEDS: AMOXICILLIN/CLAVULANATE K 875 MG TAB PO SCH (08:46)
[2017-01-31] MEDS: SODIUM CHLORIDE 0.9% FLUSH 10 ML FLUSH IV FLUSH SCH (08:47)
--- NOTE | 2017-01-31 09:17 | HHI.DS ---
Discharge Summary Admission Date Jan 22, 2017 at 17:41 Discharge Date: Jan 31, 2017 Admitting Diagnosis Ovarian Abscess/Leukocytosis (1) Sepsis ICD Code: A41.9 - Sepsis, unspecified organism (2) Acute appendicitis ICD Code: K35.80 - Unspecified acute appendicitis (3) Leukocytosis ICD Code: D72.829 - Elevated white blood cell count, unspecified Status: Acute Procedures Appendectomy Brief History - From Admission History of present illness from the admitting physician 41 y/o female with a history of bipolar presented to the ED with complaints of abdominal pain. Patient states for the last 3 days she has had diffuse abdominal pain and distention, she has been unable to have a BM or pass gas. She was seen at [facility] on Friday and diagnosed with PID and treated with doxycycline and flagyl, but states the pain did not resolve. She does have associated nausea. Denies any chest pain, sob, fever or chills. She currently rates her pain at a 6/10 intermitted cramping feeling. She does state the medication given has helped. CBC/BMP: 01/29/17 0717 01/29/17 0717 Significant Findings Laboratory Tests Test 01/29/17 07:17 Red Blood Count 3.79 MIL/MM3 (4.00-5.30) Blood Urea Nitrogen 2 MG/DL (7-18) Imaging Last Impressions Abdomen X-Ray 01/28/17 0000 Signed Impressions: Service Date/Time: Saturday, January 28, 2017 10:58 - CONCLUSION: 1. Suction type nasogastric catheter tip in the proximal third portion of the duodenum. Consider retracting the catheter approximately 15 cm to withdraw back into the stomach if intended gastric positioning. 2. Findings consistent with stable adynamic ileus. Theodore Blake MD Abdomen/Pelvis/Transvag US 01/22/17 1700 Signed Impressions: Service Date/Time: Sunday, January 22, 2017 17:26 - CONCLUSION: 1. No acute [employer] abnormality is convincingly demonstrated. A few small bilateral ovarian cysts are noted but no evidence of torsion or definite PID. 2. I have reviewed the CT and I don't convincingly see a normal appendix. There is a looped structure medial to the cecum with wall thickening; I'm not convinced its the ileum and acute appendicitis is definitely possible in the proper clinical setting, especially since I don't see a definite acute [employer] abnormality. Findings were discussed with Bola Bird P.A.-C. Steve Kerr MD Abdomen/Pelvis CT 01/22/17 1310 Signed Impressions: Service Date/Time: Sunday, January 22, 2017 15:10 - CONCLUSION: Cystic mass right adnexal region. Trace fluid in the right pelvis. I do not see inflammatory changes. Scattered radiopacities throughout the colon. Saman Dudley MD FACR PE at Discharge GENERAL: Patient is in no acute distress CARDIOVASCULAR: Normal rate and regular rhythm without murmurs, gallops, or rubs. RESPIRATORY: Good respiratory efforts. Breath sounds equal and clear to auscultation bilaterally. GASTROINTESTINAL: Abdomen is less distended, non tender to palpation. Hypoactive bowel sounds. Drain in place. MUSCULOSKELETAL: Extremities without cyanosis, or edema. NEURO: Alert & Oriented x4 to person, place, time, situation. Moves all ext x4 PSYCH: Appropriate mood and affect. Pt update on day of discharge Patient reports she is feeling better. Eager to go home. Hospital Course 41 y/o female with a history of bipolar presented to the ED with complaints of abdominal pain. The patient was admitted with sepsis. This was secondary to acute appendicitis. She underwent laparoscopic appendectomy by Dr. Avielz. She was found to have chronic purulent drainage. Postoperatively the patient had an ileus which took a few days to resolve. Her symptoms ultimately improved and she was discharged home in good condition. The patient was treated with Zosyn while inpatient. She is discharged on Augmentin to complete the course of treatment. Pt Condition on Discharge: Good Discharge Disposition: Discharge Home Discharge Time: > 30 minutes Discharge Instructions DIET: Follow Instructions for: As Tolerated, No Restrictions Activities you can perform: Regular-No Restrictions Follow up Referrals: Surgical - 1 Week with Timothy Avilez MD New Medications: Amoxicillin-Clavulanate (Amoxicillin-Clavulanate) 875-125 mg Tab 875 MG PO Q12HR, #14 TAB not for use in CrCl <30 mL/minute Oxycodone-Acetaminophen (Oxycodone-Acetaminophen) 10-325 mg Tab 1 TAB PO Q6H PRN for PAIN SCALE 6 TO 10, #15 TAB Sennosides-Docusate Sodium (Senna Plus 8.6-50 mg) 8.6 Mg-50 Mg Tab 1 TAB PO DAILY, #30 TAB Discontinued Medications: Azithromycin (Zithromax) 250 Mg Tab 250 MG PO DIRECTED for Infection, #6 TAB 0 Refills Take 2 tabs (500 mg) on day 1 then 1 tab daily x 4 days. Doxycycline Hyclate (Doxycycline Hyclate) 100 Mg Cap 100 MG PO BID for Infection, #20 CAP 0 Refills Metronidazole (Flagyl) 500 Mg Tab 500 MG PO TID for Infection for 10 Days, TAB 0 Refills Scooter Jarrett MD Jan 31, 2017 09:17
[2017-01-31] MEDS ORDERED: OXYC1TAB36 PO (09:18)
[2017-01-31] MEDS ORDERED: SENN1TAB PO (09:18)
[2017-01-31] MEDS ORDERED: AMOX875T2 PO (09:18)
[2017-01-31 12:00] VITALS: BP 116/78; PULSE 80; RESP 12; TEMP 98.7; O2SAT 98
[2017-01-31] MEDS ORDERED: oxyCODONE/ACETAMINOPHEN 10 MG/325 MG TAB PO PRN (13:00)
--- NOTE | 2017-01-31 15:36 | HHI.PR ---
Subjective Subjective Notes Up to chair Ready to go home today Objective Vitals/I&O Vital Signs Date Time Temp Pulse Resp B/P (MAP) Pulse Ox O2 Delivery O2 Flow Rate FiO2 01/31/17 12:00 98.7 80 12 116/78 (91) 98 Labs Date/Time Source Procedure Growth Status 01/22/17 19:15 Blood Peripheral Aerobic Blood Culture - Final NO GROWTH IN 5 DAYS Complete 01/22/17 19:15 Blood Peripheral Anaerobic Blood Culture - Final NO GROWTH IN 5 DAYS Complete Cardiovascular: Regular Lungs: Clear Abdomen: Other (CHUY drain removed; lap sites c/d/i; soft non tender ) Extremities: No edema A/P Problem List: (1) Ileus, postoperative ICD Codes: K91.89 - Other postprocedural complications and disorders of digestive system; K56.7 - Ileus, unspecified (2) Acute appendicitis ICD Codes: K35.80 - Unspecified acute appendicitis (3) Leukocytosis ICD Codes: D72.829 - Elevated white blood cell count, unspecified Status: Acute (4) Sepsis ICD Codes: A41.9 - Sepsis, unspecified organism Assessment and Plan 41 year old female s/p lap appy; gangrenous; post op ileus -Tolerating regular diet -Continue Augmentin -Bowel regimen -OOB and mobilize -Pain control -GS clear for DC -Follow up with Dr. Avilez in 1 week Attending Statement patient seen at bedside significant improvement tolerating diet +bms d/c home Attestation The exam, history, and the medical decision-making described in the above note were completed with the assistance of the mid-level provider. I reviewed and agree with the findings presented. I attest that I had a [id number] encounter with the patient on the same day, and personally performed and documented my assessment and findings in the medical record. Problem Qualifiers (1) Leukocytosis: Qualified Codes: D72.829 - Elevated white blood cell count, unspecified Keira Glass Jan 31, 2017 15:36 Timothy Avilez MD Feb 02, 2017 13:38
[2017-02-10] MEDS ORDERED: METR-1 PO (15:59)
== END 2017-01-31 13:32 | disposition home or self-care (01) | DRG 853 ==
LOC: NEPC 12:42 → NEDA 17:41 → HOCA 19:25
PROVIDERS: ADMIT Family Medicine; ATTEND Family Medicine
PROC: 0DTJ4ZZ Resection of Appendix, Percutaneous Endoscopic Approach (ICD-10-PCS; principal; 2017-01-23)
DX: A41.9 Sepsis, unspecified organism (principal); K35.3 Acute appendicitis with localized peritonitis; K91.30 Postprocedural intestinal obstruction, unspecified as to partial versus complete; F31.9 Bipolar disorder, unspecified; J45.909 Unspecified asthma, uncomplicated; F17.290 Nicotine dependence, other tobacco product, uncomplicated; E87.6 Hypokalemia; E83.39 Other disorders of phosphorus metabolism; Y83.8 Other surgical procedures as the cause of abnormal reaction of the patient, or of later complication, without mention of misadventure at the time of the procedure
CPT/HCPCS: 74000; 74177; 76830; 76856; 76937; 80048; 80053; 81001; 83036; 83605; 83690; 83735; 84100; 84439; 84443; 84702; 84703; 85025; 85027; 85610; 85730; 87040; 87210; 87491; 87591; 88304; 93005; 93975; 96361; 96365; 96374; 96375; J0131; J0696; J1170; J2250; J2270; J2405; J2543; J2710; J3010; J3370; J3480; J7030; J7050; J7120; Q9967